=== PATIENT | female | born 1960 | race Caucasian/White ===

== ENCOUNTER 2021-01-24 08:11 | Outpatient (REF) | payer OTHER, SELFPAY ==
[2021-01-24 09:58] LABS: MANUAL DIFF FLAG NO
[2021-01-24 10:04] LABS: Basophils Absolute Auto 0.1 X10*3/uL (0.0-0.2); Basophils Percent Auto 0.9 % (0-2); Eosinophils Absolute Auto 0.3 X10*3/uL (0.0-0.4); Eosinophils Percent Auto 3.5 % (0-4); Hematocrit 42.7 % (37-47); Hemoglobin 13.4 g/dl (12.0-16.0); Imm Gran Abs Auto 0.04 X10*3/uL (0.00-0.03); Imm Gran Pct Auto 0.5 % (0.0-0.4); Lymphocytes Absolute Auto 3.1 X10*3/uL (1.2-4.9); Lymphocytes Percent Auto 38.2 % (20-40); Mean Corpuscular HGB Conc 31.4 g/dl (31.0-35.0); Mean Corpuscular Hemoglobin 27.3 pg (27.0-33.0); Mean Platelet Volume 10.1 fL (9.4-12.3); Monocytes Absolute Auto 0.6 X10*3/uL (0.1-1.2); Monocytes Percent Auto 7.9 % (2-11); Platelet Count 308 X10*3/uL (160-400); Red Blood Count 4.91 X10*6/uL (4.20-5.50); Red Cell Distribution Width 13.9 % (11.0-16.0); White Blood Count 8.1 X10*3/uL (4.8-10.8)
[2021-01-24 10:22] LABS: Alanine Aminotransferase 20 U/L (0-31); Albumin Level 4.1 g/dL (3.5-5.0); Alkaline Phosphatase 94 U/L (39-117); Anion Gap 13 (12-20); Aspartate Amino Transferase 16 U/L (5-31); Bilirubin Total 1.2 mg/dL (0.0-1.0); Blood Urea Nitrogen 21 mg/dL (9-16); Calcium 9.2 mg/dL (8.4-10.2); Carbon Dioxide 24 mmol/L (22-29); Chloride 109 mmol/L (96-108); Cholesterol 198 mg/dL; Estimated Glomerular Filt Rate 50; Glucose Fasting 103 mg/dL (60-99); HDL Cholesterol 42 mg/dL; LDL Cholesterol Calculated 135 mg/dl; Potassium 4.5 mmol/L (3.3-5.1); Sodium 141 mmol/L (135-145); Total Protein 6.6 g/dL (6.5-8.0); Triglycerides 106 mg/dL
[2021-01-24 10:43] LABS: Free T4 (Free Thyroxine) 1.28 ng/dL (0.71-1.85); Thyroid Stimulating Hormone 0.77 uIU/mL (0.32-4.0); Vitamin D 25-OH Total 21.7 ng/mL (>30)
== END 2021-01-24 08:12 | disposition home or self-care (01) ==
LOC: HO.10HDL 08:11
PROVIDERS: Visit Provider Internal Medicine
DX: Z00.00 Encounter for general adult medical examination without abnormal findings (principal); E03.9 Hypothyroidism, unspecified; E55.9 Vitamin D deficiency, unspecified
CPT/HCPCS: 36415; 80053; 80061; 82306; 84439; 84443; 85025

== ENCOUNTER 2021-05-21 08:55 | Outpatient (REF) | payer OTHER, SELFPAY ==
[2021-05-21 11:19] LABS: Anion Gap 12 (12-20); Blood Urea Nitrogen 15 mg/dL (9-16); Carbon Dioxide 23 mmol/L (22-29); Chloride 112 mmol/L (96-108); Estimated Glomerular Filt Rate 54; Glucose Fasting 96 mg/dL (60-99); Potassium 4.3 mmol/L (3.3-5.1); Sodium 143 mmol/L (135-145)
[2021-05-21 11:23] LABS: Free T4 (Free Thyroxine) 1.23 ng/dL (0.71-1.85); Thyroid Stimulating Hormone 0.57 uIU/mL (0.32-4.0)
== END 2021-05-21 08:56 | disposition home or self-care (01) ==
LOC: HO.10HDL 08:55
PROVIDERS: Visit Provider Internal Medicine
DX: E55.9 Vitamin D deficiency, unspecified (principal); E03.9 Hypothyroidism, unspecified; N18.9 Chronic kidney disease, unspecified
CPT/HCPCS: 36415; 80048; 82306; 84439; 84443

== ENCOUNTER 2021-11-26 07:42 | Outpatient (REF) | payer OTHER, SELFPAY ==
[2021-11-26 10:43] LABS: Anion Gap 12 (12-20); Blood Urea Nitrogen 16 mg/dL (9-16); Calcium 9.4 mg/dL (8.4-10.2); Carbon Dioxide 25 mmol/L (22-29); Chloride 109 mmol/L (96-108); Cholesterol 179 mg/dL; Estimated Glomerular Filt Rate 57; Glucose Fasting 101 mg/dL (60-99); HDL Cholesterol 44 mg/dL; LDL Cholesterol Calculated 118 mg/dl; Potassium 4.5 mmol/L (3.3-5.1); Sodium 141 mmol/L (135-145); Triglycerides 86 mg/dL
[2021-11-26 10:58] LABS: Free T4 (Free Thyroxine) 1.08 ng/dL (0.71-1.85); Thyroid Stimulating Hormone 1.97 uIU/mL (0.32-4.0); Vitamin D 25-OH Total 25.3 ng/mL (>30)
== END 2021-11-26 07:43 | disposition home or self-care (01) ==
LOC: HO.10HDL 07:42
PROVIDERS: Visit Provider Internal Medicine
DX: E78.00 Pure hypercholesterolemia, unspecified (principal); E55.9 Vitamin D deficiency, unspecified; N18.9 Chronic kidney disease, unspecified
CPT/HCPCS: 36415; 80048; 80061; 82306; 84439; 84443

== ENCOUNTER 2022-01-24 14:28 | Outpatient (REF) | payer OTHER, SELFPAY ==
[2022-01-24 15:41] LABS: Influenza A PCR POSITIVE (Negative); Influenza B PCR NEGATIVE (Negative); Resp Syncy Virus RNA Qual PCR NEGATIVE (Negative); SARS COV2 PCR INHOUSE NEGATIVE (Negative)
== END 2022-01-24 14:29 | disposition home or self-care (01) ==
LOC: HO.LNP 14:28
PROVIDERS: Visit Provider Internal Medicine
DX: Z20.822 Contact with and (suspected) exposure to COVID-19 (principal); R05.9 Cough, unspecified; R52 Pain, unspecified
CPT/HCPCS: 0241U

== ENCOUNTER 2022-05-10 07:46 | Outpatient (REF) | payer OTHER, SELFPAY ==
[2022-05-10 10:51] LABS: Anion Gap 12 (12-20); Blood Urea Nitrogen 15 mg/dL (9-16); Calcium 8.9 mg/dL (8.4-10.2); Carbon Dioxide 25 mmol/L (22-29); Chloride 110 mmol/L (96-108); Estimated Glomerular Filt Rate 56; Glucose Random 106 mg/dL (60-115); Potassium 4.3 mmol/L (3.3-5.1); Sodium 143 mmol/L (135-145)
[2022-05-10 11:13] LABS: Free T4 (Free Thyroxine) 1.36 ng/dL (0.71-1.85); Thyroid Stimulating Hormone 1.09 uIU/mL (0.32-4.0); Vitamin D 25-OH Total 34.3 ng/mL (>30)
== END 2022-05-10 07:47 | disposition home or self-care (01) ==
LOC: HO.10HDL 07:46
PROVIDERS: Visit Provider Internal Medicine
DX: E03.9 Hypothyroidism, unspecified (principal); E55.9 Vitamin D deficiency, unspecified
CPT/HCPCS: 36415; 80048; 82306; 84439; 84443

== ENCOUNTER 2022-07-30 07:45 | Outpatient (REF) | payer OTHER, SELFPAY ==
[2022-07-30 10:34] LABS: MANUAL DIFF FLAG NO
[2022-07-30 10:44] LABS: Basophils Absolute Auto 0.1 X10*3/uL (0.0-0.2); Basophils Percent Auto 1.1 % (0-2); Eosinophils Absolute Auto 0.2 X10*3/uL (0.0-0.4); Eosinophils Percent Auto 2.5 % (0-4); Hematocrit 43.9 % (37.0-47.0); Hemoglobin 14.2 g/dl (12.0-16.0); Imm Gran Abs Auto 0.03 X10*3/uL (0.00-0.03); Imm Gran Pct Auto 0.4 % (0.0-0.4); Lymphocytes Absolute Auto 3.3 X10*3/uL (1.2-4.9); Lymphocytes Percent Auto 38.8 % (20-40); Mean Corpuscular HGB Conc 32.3 g/dl (31.0-35.0); Mean Corpuscular Hemoglobin 28.1 pg (27.0-33.0); Mean Corpuscular Volume 86.9 fL (80.0-98.0); Mean Platelet Volume 9.9 fL (9.4-12.3); Monocytes Absolute Auto 0.5 X10*3/uL (0.1-1.2); Monocytes Percent Auto 6.4 % (2-11); Neutrophils Absolute Auto 4.3 x10*3/uL (2.0-8.3); Neutrophils Percent Auto 50.8 % (45-73); Platelet Count 316 X10*3/uL (160-400); Red Blood Count 5.05 X10*6/uL (4.20-5.50); Red Cell Distribution Width 13.2 % (11.0-16.0); White Blood Count 8.4 X10*3/uL (4.8-10.8)
[2022-07-30 11:27] LABS: Alanine Aminotransferase 24 U/L (0-31); Albumin Level 4.1 g/dL (3.5-5.0); Alkaline Phosphatase 88 U/L (39-117); Anion Gap 12 (12-20); Aspartate Amino Transferase 17 U/L (5-31); Bilirubin Total 1.3 mg/dL (0.0-1.0); Blood Urea Nitrogen 14 mg/dL (9-16); Calcium 9.2 mg/dL (8.4-10.2); Carbon Dioxide 24 mmol/L (22-29); Chloride 108 mmol/L (96-108); Cholesterol 189 mg/dL; Estimated Glomerular Filt Rate > 60; Free T4 (Free Thyroxine) 1.29 ng/dL (0.71-1.85); Glucose Fasting 99 mg/dL (60-99); HDL Cholesterol 43 mg/dL; LDL Cholesterol Calculated 121 mg/dl; Potassium 4.3 mmol/L (3.3-5.1); Sodium 140 mmol/L (135-145); Thyroid Stimulating Hormone 1.58 uIU/mL (0.32-4.0); Total Protein 6.8 g/dL (6.5-8.0); Triglycerides 128 mg/dL
== END 2022-07-30 07:46 | disposition home or self-care (01) ==
LOC: HO.10HDL 07:45
PROVIDERS: Visit Provider Internal Medicine
DX: E78.00 Pure hypercholesterolemia, unspecified (principal); E03.9 Hypothyroidism, unspecified; N18.9 Chronic kidney disease, unspecified
CPT/HCPCS: 36415; 80053; 80061; 84439; 84443; 85025

== ENCOUNTER 2022-12-13 08:32 | Outpatient (REF) | payer OTHER, SELFPAY ==
[2022-12-13 11:00] LABS: Anion Gap 13 (12-20); Blood Urea Nitrogen 18 mg/dL (9-16); Calcium 8.9 mg/dL (8.4-10.2); Carbon Dioxide 25 mmol/L (22-29); Chloride 108 mmol/L (96-108); Estimated Glomerular Filt Rate 60; Glucose Random 96 mg/dL (60-115); Potassium 4.6 mmol/L (3.3-5.1); Sodium 141 mmol/L (135-145)
[2022-12-13 11:17] LABS: Free T4 (Free Thyroxine) 1.54 ng/dL (0.71-1.85); Thyroid Stimulating Hormone 0.65 uIU/mL (0.32-4.0); Vitamin D 25-OH Total 39.8 ng/mL (>30)
== END 2022-12-13 08:33 | disposition home or self-care (01) ==
LOC: HO.10HDL 08:32
PROVIDERS: Visit Provider Internal Medicine
DX: E03.9 Hypothyroidism, unspecified (principal); E55.9 Vitamin D deficiency, unspecified; N18.9 Chronic kidney disease, unspecified
CPT/HCPCS: 36415; 80048; 82306; 84439; 84443

== ENCOUNTER 2023-06-13 07:37 | Outpatient (REF) | payer OTHER, SELFPAY ==
[2023-06-13 11:11] LABS: MANUAL DIFF FLAG NO
[2023-06-13 11:32] LABS: Basophils Absolute Auto 0.1 X10*3/uL (0.0-0.2); Basophils Percent Auto 1.1 % (0-2); Eosinophils Absolute Auto 0.2 X10*3/uL (0.0-0.4); Eosinophils Percent Auto 3.4 % (0-4); Hematocrit 44.2 % (37.0-47.0); Hemoglobin 14.3 g/dl (12.0-16.0); Imm Gran Abs Auto 0.02 X10*3/uL (0.00-0.03); Imm Gran Pct Auto 0.3 % (0.0-0.4); Lymphocytes Absolute Auto 1.9 X10*3/uL (1.2-4.9); Lymphocytes Percent Auto 31.1 % (20-40); Mean Corpuscular HGB Conc 32.4 g/dl (31.0-35.0); Mean Corpuscular Hemoglobin 29.8 pg (27.0-33.0); Mean Corpuscular Volume 92.1 fL (80.0-98.0); Monocytes Absolute Auto 0.5 X10*3/uL (0.1-1.2); Monocytes Percent Auto 8.3 % (2-11); Neutrophils Absolute Auto 3.5 x10*3/uL (2.0-8.3); Neutrophils Percent Auto 55.8 % (45-73); Platelet Count 275 X10*3/uL (160-400); Red Cell Distribution Width 12.6 % (11.0-16.0); White Blood Count 6.2 X10*3/uL (4.8-10.8)
[2023-06-13 11:46] LABS: Alanine Aminotransferase 19 U/L (0-31); Alkaline Phosphatase 86 U/L (39-117); Anion Gap 12 (12-20); Aspartate Amino Transferase 19 U/L (5-31); Bilirubin Total 1.3 mg/dL (0.0-1.0); Blood Urea Nitrogen 13 mg/dL (9-16); Calcium 9.6 mg/dL (8.4-10.2); Carbon Dioxide 28 mmol/L (22-29); Chloride 106 mmol/L (96-108); Cholesterol 192 mg/dL (<200); Estimated Glomerular Filt Rate 55; Glucose Fasting 97 mg/dL (60-99); HDL Cholesterol 43 mg/dL (>40); LDL Cholesterol Calculated 126 mg/dL (<100); Potassium 4.3 mmol/L (3.3-5.1); Sodium 142 mmol/L (135-145); Total Protein 6.8 g/dL (6.5-8.0); Triglycerides 118 mg/dL (<150)
[2023-06-13 12:02] LABS: Free T4 (Free Thyroxine) 1.08 ng/dL (0.71-1.85); Thyroid Stimulating Hormone 0.17 uIU/mL (0.32-4.0); Vitamin D 25-OH Total 71.7 ng/mL (>30)
== END 2023-06-13 07:38 | disposition home or self-care (01) ==
LOC: HO.10HDL 07:37
PROVIDERS: Visit Provider Internal Medicine
DX: E03.9 Hypothyroidism, unspecified (principal); N18.9 Chronic kidney disease, unspecified; E78.00 Pure hypercholesterolemia, unspecified; M85.80 Other specified disorders of bone density and structure, unspecified site
CPT/HCPCS: 36415; 80053; 80061; 82306; 84439; 84443; 85025

== ENCOUNTER 2023-10-03 07:50 | Outpatient (REF) | payer OTHER, SELFPAY ==
[2023-10-03 11:06] LABS: Anion Gap 11 (12-20); Blood Urea Nitrogen 14 mg/dL (9-16); Calcium 9.5 mg/dL (8.4-10.2); Carbon Dioxide 26 mmol/L (22-29); Chloride 109 mmol/L (96-108); Estimated Glomerular Filt Rate > 60; Glucose Random 101 mg/dL (60-115); Potassium 4.2 mmol/L (3.3-5.1); Sodium 142 mmol/L (135-145)
[2023-10-03 11:24] LABS: Free T4 (Free Thyroxine) 1.19 ng/dL (0.71-1.85); Thyroid Stimulating Hormone 1.25 uIU/mL (0.32-4.0)
== END 2023-10-03 07:51 | disposition home or self-care (01) ==
LOC: HO.10HDL 07:50
PROVIDERS: Visit Provider Internal Medicine
DX: E03.9 Hypothyroidism, unspecified (principal); N18.9 Chronic kidney disease, unspecified
CPT/HCPCS: 36415; 80048; 84439; 84443

== ENCOUNTER 2024-06-18 16:32 | Outpatient (REF) | payer OTHER, SELFPAY ==
[2024-06-18 16:41] LABS: MANUAL DIFF FLAG NO
[2024-06-18 17:46] LABS: Basophils Absolute Auto 0.1 X10*3/uL (0.0-0.2); Basophils Percent Auto 1.2 % (0-2); Eosinophils Absolute Auto 0.2 X10*3/uL (0.0-0.4); Eosinophils Percent Auto 2.7 % (0-4); Hematocrit 42.1 % (37.0-47.0); Hemoglobin 14.1 g/dl (12.0-16.0); Imm Gran Abs Auto 0.03 X10*3/uL (0.00-0.03); Imm Gran Pct Auto 0.3 % (0.0-0.4); Lymphocytes Absolute Auto 3.5 X10*3/uL (1.2-4.9); Lymphocytes Percent Auto 39.4 % (20-40); Mean Corpuscular HGB Conc 33.5 g/dl (31.0-35.0); Mean Corpuscular Hemoglobin 30.5 pg (27.0-33.0); Mean Corpuscular Volume 90.9 fL (80.0-98.0); Mean Platelet Volume 9.7 fL (9.4-12.3); Monocytes Absolute Auto 0.6 X10*3/uL (0.1-1.2); Monocytes Percent Auto 6.4 % (2-11); Neutrophils Absolute Auto 4.4 x10*3/uL (2.0-8.3); Platelet Count 291 X10*3/uL (160-400); Red Blood Count 4.63 X10*6/uL (4.20-5.50); Red Cell Distribution Width 12.8 % (11.0-16.0); White Blood Count 8.8 X10*3/uL (4.8-10.8)
[2024-06-18 18:07] LABS: Anion Gap 13 (12-20); Blood Urea Nitrogen 16 mg/dL (9-16); Calcium 9.7 mg/dL (8.4-10.2); Carbon Dioxide 26 mmol/L (22-29); Chloride 107 mmol/L (96-108); Cholesterol 188 mg/dL (<200); Estimated Glomerular Filt Rate 51; Glucose Random 108 mg/dL (60-115); Potassium 3.8 mmol/L (3.3-5.1); Sodium 142 mmol/L (135-145)
[2024-06-18 18:22] LABS: Free T4 (Free Thyroxine) 1.31 ng/dL (0.71-1.85); Thyroid Stimulating Hormone 0.29 uIU/mL (0.32-4.0)
== END 2024-06-18 16:33 | disposition home or self-care (01) ==
LOC: HO.LAB 16:32
PROVIDERS: PCP Internal Medicine; Visit Provider Internal Medicine
DX: E03.9 Hypothyroidism, unspecified (principal)
CPT/HCPCS: 36415; 80048; 82465; 84439; 84443; 85025

== ENCOUNTER 2024-12-29 15:51 | Emergency (ER) | payer OTHER, SELFPAY ==
[2024-12-29 16:02] VITALS: BP 127/63; PULSE 70; RESP 12; TEMP 36.4; O2SAT 97; BMI 32.6
--- NOTE | 2024-12-29 16:03 | ECG_ITS ---
Test Reason : dizzness Blood Pressure : */* mmHG Vent. Rate : 70 BPM Atrial Rate : 70 BPM P-R Int : 162 ms QRS Dur : 88 ms QT Int : 424 ms P-R-T Axes : 27 7 20 degrees QTcB Int : 457 ms Normal sinus rhythm Minimal voltage criteria for LVH, may be normal variant ( R in aVL ) Borderline ECG No previous ECGs available Referred By: Generic ED Physician Electronically Signed By: David Zavaleta
[2024-12-29 16:53] LABS: MANUAL DIFF FLAG NO
[2024-12-29 16:59] LABS: Basophils Absolute Auto 0.1 X10*3/uL (0.0-0.2); Basophils Percent Auto 0.7 % (0-2); Eosinophils Absolute Auto 0.1 X10*3/uL (0.0-0.4); Eosinophils Percent Auto 1.1 % (0-4); Hematocrit 40.8 % (37.0-47.0); Hemoglobin 13.9 g/dl (12.0-16.0); Imm Gran Abs Auto 0.11 X10*3/uL (0.00-0.03); Lymphocytes Absolute Auto 1.7 X10*3/uL (1.2-4.9); Lymphocytes Percent Auto 14.9 % (20-40); Mean Corpuscular HGB Conc 34.1 g/dl (31.0-35.0); Mean Corpuscular Hemoglobin 30.2 pg (27.0-33.0); Mean Corpuscular Volume 88.5 fL (80.0-98.0); Mean Platelet Volume 9.3 fL (9.4-12.3); Monocytes Absolute Auto 0.7 X10*3/uL (0.1-1.2); Monocytes Percent Auto 6.3 % (2-11); Neutrophils Absolute Auto 8.4 x10*3/uL (2.0-8.3); Platelet Count 239 X10*3/uL (160-400); Red Blood Count 4.61 X10*6/uL (4.20-5.50); Red Cell Distribution Width 12.7 % (11.0-16.0); White Blood Count 11.1 X10*3/uL (4.8-10.8)
[2024-12-29 17:15] LABS: Alanine Aminotransferase 15 U/L (0-31); Albumin Level 3.9 g/dL (3.5-5.0); Alkaline Phosphatase 103 U/L (39-117); Anion Gap 8 (12-20); Aspartate Amino Transferase 20 U/L (5-31); Bilirubin Total 0.7 mg/dL (0.0-1.0); Blood Urea Nitrogen 22 mg/dL (9-16); Calcium 9.1 mg/dL (8.4-10.2); Carbon Dioxide 27 mmol/L (22-29); Chloride 109 mmol/L (96-108); Creatinine Clr Calc Pharmacy 73.3; Estimated Glomerular Filt Rate > 60; Glucose Random 150 mg/dL (60-115); Potassium 4.2 mmol/L (3.3-5.1); Sodium 140 mmol/L (135-145); Total Protein 6.6 g/dL (6.5-8.0)
[2024-12-29 17:28] LABS: Troponin-I High Sensitivity < 2.7 ng/L (<3.5-17.0)
[2024-12-29 17:40] LABS: Influenza A PCR NEGATIVE (Negative); Influenza B PCR NEGATIVE (Negative); Resp Syncy Virus RNA Qual PCR NEGATIVE (Negative); SARS COV2 PCR INHOUSE NEGATIVE (Negative)
--- OUTSIDE RECORDS SUMMARY | 2024-12-29 17:49 | XMS_ITS | Continuity of Care Document ---
Author Organization [facility] [address] [place] [address] Phone [phone] Care Team Providers Care Curtain Framer Name Role Phone Tr Escobar M.D. Care Team Information Receiv er [phone] Problems Active Problems Provider Date Stephanie thyroiditis Kewsi Wong M.D. On set: 05/20/2023 Secondary hypothyroidism Kwesi Wong M.D. Onset: 05/20/2023 Carcinoma of breast Kwesi Wong M.D. Onse t: 05/20/2023 Social History Type Date Description Comments Sex Unknown Lives With Significant Other ETOH Use Occasionally consumes alcoho l ONCE A MONTH Tobacco Use Start: Unknown Patient has never smoked Allergies and adverse reactions Description No Known Drug Allergies Medications Active Medications SIG Qnty Indications Ordering Provider Date Levothyroxine [id number] Tablets Take 1 Tablet By Mouth Every Day 90tabs Kwesi Wong M.D. 05/25/2023 [id number] Tablets Take 1 Tablet By Mouth Daily Kami Guerrero MD Vital Signs Date Vital Result Comment 07/07/2024 9:41am BP Systolic 122 mmHg BP Diastolic 80 mmHg Heart Rate 72 /min Height 67 inches 5'7 Weight 192.00 lb BMI (Body Mass Index) 30.1 kg/m2 Results Test Acquired Date Facility Test Result H/L Range N ote TSH+Free T4 07/07/2024 [facility] TSH 0.449 uIU/mL Low 0.450-4.50 0 T4,Free(Dire ct) 1.80 ng/dL High 0.82-1.77 TSH With Reflex To FT4 09/17/2023 [facility] TSH With Reflex To FT4 1.98 uIU/mL (0.4-4.2) TSH With Reflex To FT4 05/27/2023 [facility] TSH With Reflex To FT4 <pending> TSH With Reflex To FT4 05/20/2023 [facility] TSH With Reflex To FT4 0.08 uIU/mL Low (0.4-4.2) Free T4 05/20/2023 [facility] Free T4 1.89 ng/dL High (0.70-1.80 ) Procedures Date Code Description Status 06/28/2024 NSHOWOFF No Show Office Visit Complet ed 03/27/2022 [id number] Collection Of Capillary Bloo d Specimen Completed Medical Devices Description No Information Available Encounters Type Date Location Provider Dx Diagnosis Office Visit 07/07/2024 9:15a Main Office Kwesi Wong M.D. E03.9 Hypothyroidism, unspecified Assessments Date Code Description Provider 07/07/2024 E03.9 Hypothyroidism, unspecified Kwesi Wong M.D. Plan of Treatment Future Appointment(s):* 07/07/2025 8:15 am - Kwesi Wong M.D. at Main Office 05/20/2023 - Kwesi Wong M.D.* E03.9 Hypothyroidism, unspecified Functional Status Description No Information Available Mental Status Description No Information Available Referrals Description No Information Available
[2024-12-29 18:00] VITALS: BP 138/76; PULSE 68; RESP 16; TEMP 36.7; O2SAT 94
--- NOTE | 2024-12-29 19:19 | ED_ITS ---
HPI - Dizziness General Chief Complaint: Dizziness Stated Complaint: dizzy,vomiting Time Seen by Provider: 12/29/24 19:19 Source: patient Mode of arrival: ambulatory Limitations: no limitations History of Present Illness ED Provider: Hugo Tran DO HPI Narrative: 64-year-old female with past medical history of hypothyroidism presents to the ED due to sudden-onset dizziness with diaphoresis and an episode of nausea and vomiting x2. Patient states she was sitting at her desk at approximately 14:00, talking to her co-worker at the time the symptoms started. She states his symptoms significantly worsened with trying to stand and ambulate and she reports it feeling ?like I was drunk?. She states when she sat down to rest and placed her hand forehead the symptoms rapidly improved and resolved within minutes. Since that time she has had ever so slight recurrent dizziness with ambulation such as to the bathroom in the emergency department. She otherwise denies other symptoms including headaches, syncope, new neck pain, numbness or weakness of the arms or legs, changes in vision, changes in hearing (chronic left-sided hearing impairment), chest discomfort, exertional symptoms, dyspnea or abdominal pain. Related Data Previous Rx's ?Medication ?Instructions ?Recorded meclizine 25 mg tablet 25 mg PO TID PRN dizziness #14 tabs 12/29/24 Allergies Allergy/AdvReac Type Severity Reaction Status Date / Time No Known Allergies Allergy Verified 12/29/24 16:06 Review of Systems 2 Review of Systems: Yes all other systems are reviewed and are negative [facility] Social History Social History (System 12/26/20 @ 14:29 by Esthela Live) Advance Directives: No Advance Directives Information Provided: No Do you have a plan to hurt others: No Plan Physical Exam 2 Vital Signs: Vital Signs: Last Vital Signs Temp 98.1 F 12/29/24 20:00 Pulse 71 12/29/24 20:00 Resp 15 12/29/24 20:00 BP 144/76 H 12/29/24 20:00 Pulse Ox 94 12/29/24 20:00 O2 Del Method Room Air 12/29/24 20:00 BMI result Body Mass Index 32.6 Constitutional: ?Alert, oriented, speaking in full sentences HEENT: ?Normocephalic, atraumatic. ?Moist mucous membranes Eyes: ?PERRL, EOMI Neck: ?Supple, nontender Chest: ?No chest wall tenderness Respiratory: ?Lungs clear to auscultation, no increased work of breathing Cardio: ?Regular rate and rhythm, no murmur, 2+ radial and DP pulses symmetrically GI: ?Soft, nondistended, nontender Back: ?Normal range of motion, nontender Skin: ?No rash, no lesions Neuro: ?Mental Status: Patient is alert, attentive, and fully oriented Speech: Clear and fluent CN II: Visual castaneda are full, pupils are equal and briskly reactive to light CN III, IV, : Extra ocular motions are intact in all directions. No ptosis. CN V: Facial sensation intact, both upper and lower face CN VII: Symmetric facial movements CN VIII: Hearing is grossly normal CN IX, X: Symmetric elevation of palate, normal phonation CN XI: Shoulder shrug 5/5 strength bilaterally CN XII: Tongue protrudes midline Motor: No pronator drift bilaterally. 5/5 strength all 4 extremities. Normal muscle bulk and tone. Sensory: Sensation intact all 4 extremities to light touch without reported paresthesias. Coordination: No dysmetria on finger to nose bilaterally. No truncal ataxia noted. Unremarkable gait Extremities: ?No swelling or tenderness, full range of motion Psych: ?Calm, alert and cooperative, appropriate behavior Medical Decision Making Medical Decision Making MDM Narrative: This is a patient with unremarkable vital signs and resolve symptoms presenting with transient dizziness that was clearly triggered and worsened with movement and standing/walking. The patient's neurologic exam is completely unremarkable. At this time I do not suspect central cause of the dizziness. He has had no recent illnesses and no new hearing impairments or tinnitus and therefore I do not suspect viral labyrinthitis or Meniere's disease. This could be BPPV, but I was unable to elicit nystagmus or reproduce the symptoms with Marcie-Hallpike maneuver. The patient has a steady gait without symptoms. In the absence of headache, neck pain or syncope, I do not suspect dissection. She is asymptomatic at this time with unremarkable lab work including thyroid testing, troponin, electrolytes and CBC. No suspicion for intracranial hemorrhage. With shared decision-making, the patient agrees with plan for discharge to home with prescription for meclizine but we will return with any worsening symptoms. She voices understanding of return precautions. Lab Data 12/29/24 16:49 12/29/24 16:49 Labs: Lab Results 12/29/24 Range/Units 16:49 WBC 11.1 H (4.8-10.8) X10*3/uL RBC 4.61 (4.20-5.50) X10*6/uL Hgb 13.9 (12.0-16.0) g/dl Hct 40.8 (37.0-47.0) % MCV 88.5 (80.0-98.0) fL MCH 30.2 (27.0-33.0) pg MCHC 34.1 (31.0-35.0) g/dl RDW 12.7 (11.0-16.0) % Plt Count 239 (160-400) X10*3/uL MPV 9.3 L (9.4-12.3) fL Immature Gran % (Auto) 1.0 H (0.0-0.4) % Neut % (Auto) 76.0 H (45-73) % Lymph % (Auto) 14.9 L (20-40) % Carver % (Auto) 6.3 (2-11) % Eos % (Auto) 1.1 (0-4) % Baso % (Auto) 0.7 (0-2) % Lymph # (Auto) 1.7 (1.2-4.9) X10*3/uL Carver # (Auto) 0.7 (0.1-1.2) X10*3/uL Eos # (Auto) 0.1 (0.0-0.4) X10*3/uL Baso # (Auto) 0.1 (0.0-0.2) X10*3/uL Abs Immat Gran (auto) 0.11 H (0.00-0.03) X10*3/uL Absolute Neuts (auto) 8.4 H (2.0-8.3) x10*3/uL Absolute Nucleated RBC 0.000 (0.0-0.012) X10*3/uL Nucleated RBC % (auto) 0.0 (0.0-0.2) /100WBC Sodium 140 (135-145) mmol/L Potassium 4.2 (3.3-5.1) mmol/L Chloride 109 H (96-108) mmol/L Carbon Dioxide 27 (22-29) mmol/L Anion Gap 8 L (12-20) BUN 22 H (9-16) mg/dL Creatinine 0.89 (0.5-1.4) mg/dL Estim Creat Clear Calc 73.3 Estimated GFR > 60 Random Glucose 150 H (60-115) mg/dL Calcium 9.1 D (8.4-10.2) mg/dL Total Bilirubin 0.7 (0.0-1.0) mg/dL AST 20 (5-31) U/L ALT 15 (0-31) U/L Alkaline Phosphatase 103 (39-117) U/L Troponin I High Sens < 2.7 (<3.5-17.0) ng/L Total Protein 6.6 (6.5-8.0) g/dL Albumin 3.9 (3.5-5.0) g/dL Lipase 33 (8-78) U/L TSH 0.58 (0.32-4.0) uIU/mL Influenza Type A (PCR) NEGATIVE (Negative) Influenza Type B (PCR) NEGATIVE (Negative) RSV RNA Qual (PCR) NEGATIVE (Negative) SARS-CoV-2 RNA (RT-PCR) NEGATIVE (Negative) Independent Interpretation I performed an independent interpretation of an: EKG Interpretation: Normal sinus rhythm at 70 beats per minute, normal axis, unremarkable intervals, voltage criteria met for LVH, no diagnostic ST or T-wave, no prior for comparison. Discharge Plan Discharge Clinical Impression: Dizziness Patient Disposition: Home, Self-Care Instructions: Vertigo (ED), Dizziness (ED) Additional Instructions: You were evaluated for a dizziness episode with nausea and vomiting and sweating. Lab work and exam findings showed no acute abnormalities. We prescribed meclizine which can take up to every 8 hours at home as needed for recurrent dizziness. Very importantly, if your dizziness is constant, not completely resolve with rest, or if you develop episodes of passing out, headaches, fevers, worsening neck pain, numbness or weakness of your arms or legs, change in hearing from baseline, change in speech, change in vision or any other acute changes or concerns, please return to the emergency department immediately. Otherwise, follow up with your primary care provider. Prescriptions: New meclizine 25 mg tablet 25 mg PO TID PRN (Reason: dizziness) Qty: 14 0RF Stand Alone Forms: Work/School Release Print Language: Stateless
[2024-12-29 19:42] LABS: Lipase 33 U/L (8-78)
[2024-12-29 19:59] LABS: Thyroid Stimulating Hormone 0.58 uIU/mL (0.32-4.0)
[2024-12-29 20:00] VITALS: BP 144/76; PULSE 71; RESP 15; TEMP 36.7; O2SAT 94
[2024-12-29 20:51] VITALS: BP 118/77; PULSE 72; RESP 18; TEMP 36.7; O2SAT 95
[2024-12-29 21:19] VITALS: BP 118/77; PULSE 72; RESP 18; TEMP 36.7; O2SAT 95
== END 2024-12-29 21:20 | disposition home or self-care (01) ==
PROVIDERS: Emergency Provider Emergency Medicine
DX: R42 Dizziness and giddiness (principal); E03.9 Hypothyroidism, unspecified; R11.2 Nausea with vomiting, unspecified; R94.31 Abnormal electrocardiogram [ECG] [EKG]; Z79.899 Other long term (current) drug therapy; Z03.818 Encounter for observation for suspected exposure to other biological agents ruled out
CPT/HCPCS: 0241U; 36415; 80053; 83690; 84443; 84484; 85025; 93005; 99283; 99285

== ENCOUNTER → 2024-12-29 16:03 | Outpatient (BNV) | payer OTHER, SELFPAY | PROVIDERS: Emergency Provider Emergency Medicine; Visit Provider Internal Medicine Cardiovascular Disease | DX: R42 Dizziness and giddiness (principal) | CPT/HCPCS: 93010 ==

== ENCOUNTER 2025-03-22 13:10 | Outpatient (REF) | payer OTHER, SELFPAY ==
[2025-03-22 13:12] LABS: MANUAL DIFF FLAG NO
[2025-03-22 13:29] LABS: Hematocrit 45.4 % (37.0-47.0); Hemoglobin 14.9 g/dl (12.0-16.0); Imm Gran Abs Auto 0.03 X10*3/uL (0.00-0.03); Imm Gran Pct Auto 0.3 % (0.0-0.4); Lymphocytes Absolute Auto 3.6 X10*3/uL (1.2-4.9); Mean Corpuscular HGB Conc 32.8 g/dl (31.0-35.0); Mean Corpuscular Hemoglobin 29.6 pg (27.0-33.0); Mean Corpuscular Volume 90.3 fL (80.0-98.0); NRBC Abs Auto 0.000 X10*3/uL (0.0-0.012); NRBC Pct Auto 0.0 /100WBC (0.0-0.2); Platelet Count 289 X10*3/uL (160-400); Red Blood Count 5.03 X10*6/uL (4.20-5.50); White Blood Count 8.6 X10*3/uL (4.8-10.8)
--- OUTSIDE RECORDS SUMMARY | 2025-03-22 14:15 | XMS_ITS | Patient Health Record ---
Author Organization Roger Guveara MD Address [address] [place], [place] [phone] Care Team Providers Care Poultry Grader Name Role Phone Roger Guevara Primary Care [...] 03/21/2025 12:17:59 PM >referral info and EKG faxed Referral Priority Routine Medications Medication SIG (Take, Route, Frequency, Duration) Notes Start Date End Date Status Vitamin D 25 MCG (1000 UT) 1 tablet Oral ly every other day Active Anastrozole 1 MG 1 tablet Orally Once a day Active Levothyroxine Sodium 112 MCG 1 tablet in the morning on an empty stomach Orally Once a day Active Social History Tobacco Use: Social History Observation Description Date Details (start date - stop date) Never Smoker NA - NA AUDIT-C (Standard) Question Answer Notes Did you have a drink contain ing alcohol in the past year? Yes How often did you have a dri nk containing alcohol in the past year? Monthly or less (1 point) How many drinks did you have on a typical day when you were drinking in the past year? 1 or 2 drinks (0 point) How often did you have six o r more drinks on one occasion in the past year? Never (0 point) Points 1 Interpretation Negative Tobacco Control (Standard) Question Answer Notes Tobacco use: Nonsmoker Problems Problem Type SNOMED Code ICD Code Onset Dates Problem Status W/U Status Risk Notes Problem History of breas t cancer (Z85.3) Active confirmed Problem Cardiovascular disease (06987071) Cardiovascular disease (I25.10) Active confirmed Vital Signs Blood pressure diastolic 70 mm Hg 03/21/2025 Height 67 in 03/21/2025 Blood pressure systolic 122 mm Hg 03/21/2025 Weight 200 lbs 03/21/2025 BMI 31.32 kg/m2 03/21/2025 Encounters Encounter Location Date Provider Diagnosis Roger Guevara MD [address] [place] [phone] 03/22/2025 Roger Guevara Cardiovascular disea se I25.10 Roger Guevara MD [address] [id number] 01/07/2025 Roger Guevara History of breast cancer Z85.3 and Vasovagal attack R55 Roger Guevara MD [address] [place] [id number] 03/21/2025 Roger Guevara Vasovagal attack R55 and Cardiovascular disease I25.10 Roger Guevara MD [address] [place] [id number] 12/31/2024 Roger Guevara Assessments Encounter Date Diagnosis (ICD Code) Assessment Notes Treatment Notes Treatment Clinical Notes Section Notes 03/22/2025 Cardiovascular disease (ICD-10 - I25.10) 01/07/2025 History of breast cancer (ICD-10 - Z85.3) followed by dr head 01/07/2025 Vasovagal attack (ICD-10 - R55) have explained the cause of her symptoms and she is aware Total time spent on the date of the encounter is 35 minutes including both face to face time spent and time spent reviewing documentation, pertinent lab data, studies and counseling the patient. 03/21/2025 Vasovagal attack (ICD-10 - R55) sounds like the same thing she had in december. sounds like a vasovagal the ecg is a little different from the er ecg but i don't think it is significant 03/21/2025 Cardiovascular disease (ICD-10 - I25.10) 03/21/2025 Other referral to cardiology/ had hiked 12 miles with no similar problems Plan Of Treatment Pending Test Test Name Order Date Complete Blood Count Auto Diff 5 Comprehensive [place]. Panel Fast 5 Next Appt Details Provider Name:Roger Mustafa Flynn torres, 03/28/2025 11:45:00 AM, [address] [place] [address], [address], [place], [place], [phone], Provider Name:Roger Moon Flynn torres, 07/08/2025 08:00:00 AM, [address] [place] [address], [address], [place], [place], [phone], Provider Name:Roger Pruett melissa, 07/15/2025 09:30:00 AM, [address] [place] [address], [address], [place], [place], [phone], Insurance Providers Payer Name Payer Address Payer Phone Subscriber Number Group Number Insured Name Patient Relationship to Insured Coverage Start Date Coverage End Date [address] [facility] [place] GAUTHIER [id number] MADONNA DOOLEY Self - patient is the insured
--- OUTSIDE RECORDS SUMMARY | 2025-03-22 14:15 | XMS_ITS | Patient Health Record ---
Author Organization [facility] Address [address] [place] [address] Care Team Providers Care Music Producer Name Role Phone Tr Escobar MD Primary Care Provider Oren Reilly Unavailable [phone] Reason For Referral No Information Medications Medication SIG (Take, Route, Frequency, Duration) Notes Start Date End Date Status Levothyroxine Sodium 100 MCG Oral for 90 Active Immunizations Vaccine Route Administration Date Status Comme nts Flu vaccine no Preserv 3 and > Unknown 04/09/2016 Admin istered Problems Problem Type SNOMED Code ICD Code Onset Dates Problem Status W/U Status Risk Notes Problem [id number] Encounter for screening for malignant neoplasm of colon (Z12.11) Active confirmed Problem Screening for malignant neoplasm of rectum (813985656) Encounter for screening for malignant neoplasm of rectum (Z12.12) Active confirmed Problem 58957448 Preprocedural examination (Z01.818) Active confirmed Plan Of Treatment Future Test Test Name Order Date COLONOSCOPY 04/09/2016 Insurance Providers Payer Name Payer Address Payer Phone Subscriber Number Group Number Insured Name Patient Relationship to Insured Coverage Start Date Coverage End Date [facility] [address] [place] [address] [phone] [id number] MADONNA ALVARADO Self - patient is the insured Medical (General) History Medical History History ICD Code Denies [place],DM,CVA,Lung disease,renal dise ase Surgical History Surgery Date(Month/Year) 1 1986
--- OUTSIDE RECORDS SUMMARY | 2025-03-22 14:15 | XMS_ITS | Patient Health Record ---
Author Organization [facility] Address [address] [place] [address] Care Team Providers Care Twenty One Dealer Name Role Phone Tr Escobar MD Primary Care Provider Saniya Washington Unavailable [phone] Allergies No Known Allergies Reason For Referral No Information Medications Medication SIG (Take, Route, Frequency, Duration) Notes Start Date End Date Status Levothyroxine Sodium Active Afluria Preservative Free Unknown Social History Tobacco use other than smoking: Question Answer Notes Are you an other tobacco user? No Problems Problem Type SNOMED Code ICD Code Onset Dates Problem Status W/U Status Risk Notes Problem Plantar wart (24407844) Plantar wart (B07.0) Active confirmed Problem Hallux valgus (acquired), right foot (M20.11) Active confirmed Problem Gouty arthritis of right foot (8865086901058 107) Gouty arthritis of right foot (M10.9) Active confirmed Plan Of Treatment Pending Test Test Name Order Date [id number] Destruction, 1-14 11/14/2014 Insurance Providers Payer Name Payer Address Payer Phone Subscriber Number Group Number Insured Name Patient Relationship to Insured Coverage Start Date Coverage End Date [facility] [address] [place] [address] [id number] Jane Monte Self - patient is the insured Medical (General) History Medical History History ICD Code Thyroid disorder Chicken pox Measles Surgical History Surgery Date(Month/Year)
[2025-03-22 14:25] LABS: Alanine Aminotransferase 20 U/L (0-31); Albumin Level 4.3 g/dL (3.5-5.0); Alkaline Phosphatase 98 U/L (39-117); Anion Gap 15 (12-20); Aspartate Amino Transferase 22 U/L (5-31); Blood Urea Nitrogen 18 mg/dL (9-16); Calcium 9.4 mg/dL (8.4-10.2); Carbon Dioxide 22 mmol/L (22-29); Chloride 109 mmol/L (96-108); Estimated Glomerular Filt Rate 53; Potassium 4.2 mmol/L (3.3-5.1); Sodium 142 mmol/L (135-145); Total Protein 7.0 g/dL (6.5-8.0)
== END 2025-03-22 13:11 | disposition home or self-care (01) ==
LOC: HO.LNP 13:10
PROVIDERS: Visit Provider Internal Medicine
DX: I25.10 Atherosclerotic heart disease of native coronary artery without angina pectoris (principal)
CPT/HCPCS: 80053; 85025

== ENCOUNTER 2025-03-28 15:47 | Outpatient (REF) | payer OTHER, SELFPAY ==
--- OUTSIDE RECORDS SUMMARY | 2025-03-28 15:52 | XMS_ITS | Patient Health Record ---
Author Organization Roger Guevara MD Address [address] [place], [place] [id number] Care Team Providers Care Ironworker Helper Shop Name Role Phone Roger Guevara Primary Care Provider Allergies No Known Allergies Results Component Value Reference Range Notes Electrocardiogram (EKG) Reviewed date:03/21/2025 01:04:36 PM Interpretation: Performing Lab: Notes/Report: Complete Blood Count Auto Di ff Reviewed date:03/24/2025 08:32:08 PM Interpretation: Performing Lab:[facility], [address] [place] [id number] Notes/Report: White Blood Count 8.6 4.8-10.8 X10*3/uL Red Blood Count 5.03 4.20-5.50 X10*6/uL Hemoglobin 14.9 12.0-16.0 g/dl Hematocrit 45.4 37.0-47.0 % Mean Corpuscular Volume 90.3 80.0-98.0 fL Mean Corpuscular Hemoglobin 29.6 27.0-33.0 pg Mean Corpuscular HGB Conc 32.8 31.0-35.0 g/dl Red Cell Distribution Width 12.9 11.0-16.0 % Platelet Count 289 160-400 X10*3/uL Mean Platelet Volume 9.7 9.4-12.3 fL Neutrophils Percent Auto 46.3 45-73 % Imm Gran Pct Auto 0.3 0.0-0.4 % Lymphocytes Percent Auto 41.6 20-40 % Monocytes Percent Auto 7.9 2-11 % Eosinophils Percent Auto 2.9 0-4 % Basophils Percent Auto 1.0 0-2 % NRBC Pct Auto 0.0 0.0-0.2 /100WBC Neutrophils Absolute Auto 4.0 2.0-8.3 x10*3/u L Imm Gran Abs Auto 0.03 0.00-0.03 X10*3/uL Lymphocytes Absolute Auto 3.6 1.2-4.9 X10*3/u L Monocytes Absolute Auto 0.7 0.1-1.2 X10*3/uL Eosinophils Absolute Auto 0.3 0.0-0.4 X10*3/u L Basophils Absolute Auto 0.1 0.0-0.2 X10*3/uL NRBC Abs Auto 0.000 0.0-0.012 X10*3/uL Comprehensive [place]. Panel Fa st Reviewed date:03/24/2025 08:32:34 PM Interpretation: Performing Lab:[facility], [address] [place] [phone] Notes/Report: Sodium 142 135-145 mmol/L Potassium 4.2 3.3-5.1 mmol/L Chloride 109 96-108 mmol/L Carbon Dioxide 22 22-29 mmol/L Anion Gap 15 12-20 Blood Urea Nitrogen 18 9-16 mg/dL Creatinine 1.04 0.5-1.4 mg/dL Estimated Glomerular Filt Rate 53 Chronic Kidney Disease: Estimated GFR < 60 mL/min/1.73m2 Severe Kidney Disease: Estimated GFR < 15 mL/min/1.73m2 Glucose Fasting 100 60-99 mg/dL A fasting glucose from 100-125 mg/dl is considered impaired (pre-diabetes). Calcium 9.4 8.4-10.2 mg/dL Bilirubin Total 1.0 0.0-1.0 mg/dL Aspartate Amino Transferase 22 5-31 U/L Alanine Aminotransferase 20 0-31 U/L Total Protein 7.0 6.5-8.0 g/dL Albumin Level 4.3 3.5-5.0 g/dL Alkaline Phosphatase 98 39-117 U/L Reason For Referral Reason Vasovagel Attack Diagnosis 1 Vasovagal attack (R5 5) Referral Organization Roger Guevara MD Referring Provider First Name Roger Referring Provider Last Name Paola Referring Provider Speciality Internal M edicine Referred Provider Ricky, Gilmer Referred Provider Specialty Cardiovascul ar Disease General [...] 1 tablet Orally Once a day Active Social History [...] Status W/U Status Risk Notes Problem Hypothyroid (E03.9) Active confirmed Problem Personal history of primary malignant neoplasm of breast (980794296) History of breast cancer (Z85.3) Active confirmed Problem Cardiovascular disease (03999087) Cardiovascular disease (I25.10) Active confirmed Vital Signs Blood pressure diastolic 70 mm Hg 03/28/2025 Height 67 in 03/28/2025 Blood pressure systolic 122 mm Hg 03/28/2025 Weight 202 lbs 03/28/2025 BMI 31.63 kg/m2 03/28/2025 Encounters Encounter Location Date Provider Diagnosis Roger Guevara MD [address] [place] [id number] 03/22/2025 Roger Guevara Cardiovascular disea se I25.10 Roger Guevara MD [address] [place] [id number] 01/07/2025 Roger Guevara History of breast cancer Z85.3 and Vasovagal attack R55 Roger Guevara MD [address] [place] [id number] 03/21/2025 Roger Guevara Vasovagal attack R55 and Cardiovascular disease I25.10 Roger Guevara MD [address] [place] [address] Drive [address] [place] [id number] 03/28/2025 Roger Guevara Hypothyroid E03.9 an d Weakness generalized R53.1 Roger Guevara MD [address] [place] [address] [address] [place] [id number] 12/31/2024 Roger Guevara Assessments Encounter Date Diagnosis [...] but i don't think it is significant 03/28/2025 Hypothyroid (ICD-10 - E03.9) 03/28/2025 Weakness generalized (ICD-10 - R53.1) 03/21/2025 Cardiovascular disease (ICD-10 - I25.10) 03/21/2025 Other referral to cardiology/ had hiked 12 miles with no similar problems Plan Of Treatment Pending Test Test Name Order Date Complete Blood Count Auto Diff 5 Comprehensive [place]. Panel Fast 5 TSH reflex Free T4 03/28/2025 Next Appt Details Provider Name:Roger mcguirer, 05/26/2025 11:45:00 AM, [address] [place] [address], [address] [place] [address], [phone], Provider Name:Roger torres, 07/08/2025 08:00:00 AM, [address] [place] [address], [place] [address], [place], [place], [phone], Provider Name:Roger torres, 07/15/2025 09:30:00 AM, [address] [facility], [address], [place], [place], [phone], Insurance Providers Payer Name Payer Address Payer Phone Subscriber Number Group Number Insured Name Patient Relationship to Insured Coverage Start Date Coverage End Date [address] [facility] [place]ER [phone] [id number] MADONNA DOOLEY Self - patient is the insured
--- OUTSIDE RECORDS SUMMARY | 2025-03-28 15:53 | XMS_ITS | Patient Health Record ---
Author Organization [facility] Address [address] [place] [address] Care Team Providers Care Vehicle And Equipment Cleaner Name Role Phone Tr Escobar MD Primary Care Provider Oren Reilly Unavailable [phone] Reason For Referral No Information Medications Medication SIG (Take, Route, Frequency, Duration) Notes Start Date End Date Status Levothyroxine Sodium 100 MCG Oral for 90 Active Immunizations Vaccine Route Administration Date Status Comme nts Flu vaccine no Preserv 3 and > Unknown 04/09/2016 Admin istered Problems Problem Type SNOMED Code ICD Code Onset Dates Problem Status W/U Status Risk Notes Problem 100236387 Encounter for screening for malignant neoplasm of colon (Z12.11) Active confirmed Problem Screening for malignant neoplasm of rectum (623590477) Encounter for screening for malignant neoplasm of rectum (Z12.12) Active confirmed Problem 55440338 Preprocedural examination (Z01.818) Active confirmed Plan Of Treatment Future Test Test Name Order Date COLONOSCOPY 04/09/2016 Insurance Providers Payer Name Payer Address Payer Phone Subscriber Number Group Number Insured Name Patient Relationship to Insured Coverage Start Date Coverage End Date [facility] [address] [place] [address] [phone] [id number] MADONNA ALVARADO Self - patient is the insured Medical (General) History Medical History History ICD Code Denies [place],DM,CVA,Lung disease,renal dise ase Surgical History Surgery Date(Month/Year) 1 1986
--- OUTSIDE RECORDS SUMMARY | 2025-03-28 15:53 | XMS_ITS | Continuity of Care Document ---
Author Organization [facility] [address] [place] [address] Phone [phone] Care Team Providers Care Pony Worker Name Role Phone Tr Escobar M.D. Care Team Information Receiv er [phone] Problems Active Problems Provider Date Stephanie thyroiditis Kwesi Wong M.D. On set: 05/20/2023 Secondary hypothyroidism Kwesi Wong M.D. Onset: 05/20/2023 Carcinoma of breast Kwesi Wong M.D. Onse t: 05/20/2023 Social History Type Date Description Comments Sex Female Sex Unknown Lives With Significant Other ETOH Use Occasionally consumes alcoho l ONCE A MONTH Tobacco Use Start: Unknown Patient has never smoked Allergies and adverse reactions Description No Known Drug Allergies Medications Active Medications SIG Qnty Indications Ordering Provider Date Levothyroxine [id number] Tablets Take 1 Tablet By Mouth Every Day 90tabs Kwesi Wong M.D. 05/25/2023 [id number] Tablets Take 1 Tablet By Mouth Daily [...] 0.82-1.77 TSH With Reflex To FT4 09/17/2023 [facility] TSH With Reflex To FT4 1.98 uIU/mL (0.4-4.2) TSH With Reflex To FT4 05/27/2023 [facility] TSH With Reflex To FT4 <pending> TSH With Reflex To FT4 05/20/2023 [facility] TSH With Reflex To FT4 0.08 uIU/mL Low (0.4-4.2) Free T4 05/20/2023 [facility] Free T4 1.89 ng/dL High (0.70-1.80 ) Procedures Date Code Description Status 06/28/2024 NSHOWOFF No Show Office Visit Complet ed 03/27/2022 89804 Collection Of Capillary Bloo d Specimen Completed [...]
--- OUTSIDE RECORDS SUMMARY | 2025-03-28 15:53 | XMS_ITS | Patient Health Record ---
Author [facility] Address [address] [place] [address] Care Team Providers Care Scorer Helper Name Role Phone Tr Escobar MD Primary Care Provider Saniya Washington Unavailable [phone] Allergies No Known Allergies Reason For Referral [...] W/U Status Risk Notes Problem Plantar wart (67446031) Plantar wart (B07.0) Active confirmed Problem Hallux valgus (acquired), right foot (M20.11) Active confirmed Problem Gouty arthritis of right foot (6911202426035 107) Gouty arthritis of right foot (M10.9) Active confirmed Plan Of Treatment Pending Test Test Name Order Date [id number] Destruction, 1-14 11/14/2014 Insurance Providers Payer Name Payer Address Payer Phone Subscriber Number Group Number Insured Name Patient Relationship to Insured Coverage Start Date Coverage End Date [facility] [address] [place] [id number] Jane Monte Self - patient is the insured Medical (General) History Medical History History ICD Code Thyroid disorder Chicken pox Measles Surgical History Surgery Date(Month/Year)
== END 2025-03-28 15:48 | disposition home or self-care (01) ==
LOC: HO.LNP 15:47
PROVIDERS: Visit Provider Internal Medicine
DX: E03.9 Hypothyroidism, unspecified (principal)
CPT/HCPCS: 84443

== ENCOUNTER 2025-04-05 14:01 | Outpatient (AMB) | payer OTHER, SELFPAY ==
--- NOTE | 2025-04-05 14:04 | MHC.OFFVIS ---
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 These episodes began in December and are characterized by sudden onset of sweating, clamminess, and a sensation of being unsteady, harriett to feeling drunk. The episodes occur without warning and are not associated with any specific triggers, although one episode occurred after eating. The patient reports that during these episodes, she feels as though she might pass out, but she does not lose consciousness. Lying down seems to alleviate the symptoms, although it does not resolve them immediately. She has visited the emergency room following these episodes, where her blood pressure and blood sugar levels were found to be normal. The patient has a history of breast cancer, for which she underwent a lumpectomy two years ago. She denies any history of heart problems, such as heart attacks. She also reports hearing loss in her left ear, for which she consulted an ENT specialist who did not find it related to her current symptoms. The patient maintains an active lifestyle, including hiking significant distances without experiencing symptoms during these activities. No history of any cardiac issues including coronary disease or myocardial infarction or cardiomyopathy. Exercise The patient engages in hiking, including completing significant distances on the [employer], without experiencing symptoms during these activities. [facility] Medical History Breast cancer Family History Father No problems noted. Mother No problems noted. Social History Alcohol intake: current Alcohol intake frequency: holidays/special occasions only Patient Tobacco Use Status: Never used Tobacco Review of Systems Const Denies weakness ENT Reports dizziness Card Denies chest pain, Denies chest pain with activity, Denies syncope, Denies rapid heart rate, Denies pedal edema, Denies edema, Denies leg edema, Denies lightheadedness, Reports palpitations, Denies dyspnea, Denies dyspnea on exertion and Denies orthopnea Resp Denies cough, Denies dyspnea and Denies dyspnea on exertion GI Denies hematochezia and Denies change in stool character Musc Denies abnormal gait, Denies muscle cramps, Denies muscle weakness, Denies numbness, Denies radiating pain into limb and Denies tingling Neuro Denies abnormal gait, Reports dizziness, Denies syncope, Denies numbness, Denies tingling and Denies weakness Endo Reports palpitations Physical Exam Vital Signs: Last Vital Signs Pulse 88 04/05/25 14:05 BP 122/68 04/05/25 14:05 BMI result Body Mass Index 31.3 Const General: comfortable and no acute distress Orientation/consciousness: patient oriented x3 HEENT Other: Unremarkable Head: Yes normal to inspection Neck Neck: Yes normal visual inspection Chest Chest palpation & inspection: normal inspection of the chest Resp Auscultation: clear to auscultation bilaterally Cardio Palpation: normal PMI Heart sounds: S1 normal heart sound present, S2 normal heart sound present, no gallops, no murmurs and no rubs GI Palpation (GI): Soft to palpation Back/Spine/Pelvis Other: unremarkable Skin General skin exam: no rashes or lesions noted Neuro General: patient oriented x3 Extrem General: Yes normal to inspection Psych Mental Status: mental status grossly normal Assessment & Plan Assessment & Plan (1) Pre-syncope: Code(s): R55 - Syncope and collapse Category: Medical Plan EKG with underlying sinus rhythm at 70/Min; minimal criteria for LVH versus normal variant; normal KS and corrected QT. The plan includes conducting a comprehensive cardiac evaluation to determine the cause of the pre-syncopal episodes. A 30-day heart monitor will be provided to capture any cardiac events that may occur during these episodes. An echocardiogram will be performed to assess cardiac function, and a tilt table test will be conducted to evaluate blood pressure changes in different positions. The patient is advised to remain well-hydrated to help manage symptoms. Follow-up will be arranged to review the above test results. Discussion Notes During the consultation, I discussed with the patient the potential diagnosis of vasovagal syncope and the importance of monitoring cardiac activity to identify any underlying issues. I explained the procedures for the 30-day heart monitor, echocardiogram, and tilt table test, emphasizing their roles in diagnosing the condition. We also discussed the importance of staying hydrated and the plan for follow-up to review test results and adjust the management plan as necessary. Patient was informed and verbally consented to the use of an ambient scribe for clinic note documentation during this visit. Orders: Orders CA echo transthoracic complete Today R55 - Syncope and collapse ECG Tilt Table Test Today R55 - Syncope and collapse ECG 30 day event monitor Today R55 - Syncope and collapse Medications: Discontinued meclizine Discontinued Reason: Patient no longer taking 25 mg PO TID PRN 14 tabs 0RF dizziness Patient Instructions: - Stay well-hydrated to help manage symptoms. - Use the 30-day heart monitor as instructed and record any episodes. - Follow up to review test results and discuss further management. Coding Level of Care Code New Pt Level 4 (70300) Complex EM visit Add On G2211 Diagnoses Pre-syncope R55
[2025-04-05 14:05] VITALS: BP 122/68; PULSE 88; BMI 31.3
--- OUTSIDE RECORDS SUMMARY | 2025-04-05 15:19 | XMS_ITS | Continuity of Care Document ---
Author Organization [facility] [address] [place] [address] Phone [phone] Care Team Providers Care Special Machine Operator Name Role Phone Tr Escobar M.D. Care Team Information Receiv er [phone] Problems Active Problems Provider Date Stephanie thyroiditis [...] SIG Qnty Indications Ordering Provider Date Levothyroxine [id number] Tablets Take 1 Tablet By Mouth Every Day 90tabs Kwesi Wong M.D. 05/25/2023 Tohsbniqnot6iq Tablets Take 1 Tablet By Mouth Daily [...] 0.82-1.77 TSH With Reflex To FT4 09/17/2023 [facility] TSH With Reflex To FT4 1.98 uIU/mL (0.4-4.2) TSH With Reflex To FT4 05/27/2023 [facility] TSH With Reflex To FT4 <pending> TSH With Reflex To FT4 05/20/2023 [facility] TSH With Reflex To FT4 0.08 uIU/mL Low (0.4-4.2) Free T4 05/20/2023 [facility] Free T4 1.89 ng/dL High (0.70-1.80 ) Procedures Date Code Description Status 06/28/2024 NSHOWOFF No Show Office Visit Complet ed 03/27/2022 22437 Collection Of Capillary Bloo d Specimen Completed [...]
--- OUTSIDE RECORDS SUMMARY | 2025-04-05 15:19 | XMS_ITS | Patient Health Record ---
Author Organization [facility] Address [address] [place] [address] Care Team Providers Care White Sugar Supervisor Name Role Phone Luz (RETIRED) Tr NAVA Primary Care Provide r Unavailable Oren Goss Unavailable [phone] Reason For Referral No Information Medications Medication SIG (Take, Route, Frequency, Duration) Notes Start Date End Date Status Levothyroxine Sodium 100 MCG Oral for 90 Active Immunizations Vaccine Route Administration Date Status Comme nts Flu vaccine no Preserv 3 and > Unknown 04/09/2016 Admin istered Problems Problem Type SNOMED Code ICD Code Onset Dates Problem Status W/U Status Risk Notes Problem 651993996 Encounter for screening for malignant neoplasm of colon (Z12.11) Active confirmed Problem Screening for malignant neoplasm of rectum (298562320) Encounter for screening for malignant neoplasm of rectum (Z12.12) Active confirmed Problem 17082478 Preprocedural examination (Z01.818) Active confirmed Plan Of Treatment Future Test Test Name Order Date COLONOSCOPY 04/09/2016 Insurance Providers Payer Name Payer Address Payer Phone Subscriber Number Group Number Insured Name Patient Relationship to Insured Coverage Start Date Coverage End Date [facility] [address] [place] [phone] [id number] MADONNA ALVARADO Self - patient is the insured Medical (General) History Medical History History ICD Code Denies [place],DM,CVA,Lung disease,renal dise ase Surgical History Surgery Date(Month/Year) 1 1986
--- OUTSIDE RECORDS SUMMARY | 2025-04-05 15:19 | XMS_ITS | Patient Health Record ---
Author Organization Roger Guevara MD Address [address] [place], [place] [id number] Care Team Providers Care Air Analysis Technician Name Role Phone Roger Guevara Primary Care Provider [phone] Allergies No Known Allergies Results Component Value Reference Range Notes Electrocardiogram (EKG) Reviewed date:03/21/2025 01:04:36 PM Interpretation: Performing Lab: Notes/Report: Complete Blood Count Auto Di ff Reviewed date:03/24/2025 08:32:08 PM Interpretation: Performing Lab:[facility], [address] [place] [phone] Notes/Report: White Blood Count 8.6 4.8-10.8 X10*3/uL [...] NRBC Abs Auto 0.000 0.0-0.012 X10*3/uL [facility] [place]. Panel Fa Reviewed date:03/24/2025 08:32:34 PM Interpretation: Performing Lab:[facility], [address] [place] [phone] Notes/Report: Sodium 142 135-145 mmol/L Potassium 4.2 [...] 3.5-5.0 g/dL Alkaline Phosphatase 98 39-117 U/L TSH reflex Free T4 Reviewed date:03/29/2025 12:38:42 PM Interpretation: Performing Lab:[facility], [address] [place] [phone] Notes/Report: TSH reflex Free T4 0.37 0.32-4.0 uIU/mL Hold Gold Reviewed date:03/29/2025 12:38:50 PM Interpretation: Performing Lab:[facility], [address] [place] [phone] Notes/Report: Robby Rodriguez See Note Specimen held untested for 24 hours; Call to request Chemistry testing. Reason For Referral Reason Vasovagel Attack Diagnosis [...] Referral Priority Routine Referral Appointment Date 04/05/2025 Medications Medication SIG (Take, Route, Frequency, Duration) [...] Status W/U Status Risk Notes Problem Hypothyroid (26134302) Hypothyroid (E03.9) Active confirmed Problem Personal history of primary malignant neoplasm of breast (231841090) History of breast cancer (Z85.3) Active confirmed Problem Cardiovascular disease (31978543) Cardiovascular disease (I25.10) Active confirmed Vital Signs Blood pressure diastolic 70 mm Hg 03/28/2025 Height 67 in 03/28/2025 Blood pressure systolic 122 mm Hg 03/28/2025 Weight 202 lbs 03/28/2025 BMI 31.63 kg/m2 03/28/2025 Encounters Encounter Location Date Provider Diagnosis Roger Guevara MD [address] [place] [id number] 03/22/2025 Roger Guevara Cardiovascular disea se I25.10 Roger Guevara MD [address] [place] [id number] 01/07/2025 Roger Guevara History of breast cancer Z85.3 and Vasovagal attack R55 Roger Guevara MD [address] [place] [address] [id number] 03/21/2025 Roger Guevara Vasovagal attack R55 and Cardiovascular disease I25.10 Roger Guevara MD [address] [id number] 03/28/2025 Roger Guevara Hypothyroid E03.9 an d Weakness generalized R53.1 Roger Guevara MD [address] [place] [address] [id number] 12/31/2024 Roger Guevara MD [address] [place] [address] [id number] 03/29/2025 Roger Guevara Syncope R55 and Neck [...] is significant 03/28/2025 Hypothyroid (ICD-10 - E03.9) patient has [...] evaluate that as well as her head 03/29/2025 Syncope (ICD-10 - R55) Order faxed to Johnny 03/21/2025 Cardiovascular disease (ICD-10 - I25.10) 03/29/2025 Neck pain (ICD-10 - M54.2) Order faxed to Johnny 03/21/2025 Other referral to cardiology/ had hiked 12 miles with no similar problems Plan Of Treatment Pending Test Test Name Order Date Complete Blood Count Auto Diff 5 Comprehensive [place]. Panel Fast 5 TSH reflex Free T4 03/28/2025 MR head/brain wo con 03/29/2025 MR cervical spine wo con 03/29/2025 Next Appt Details Provider Name:Roger Pruett ier, 05/26/2025 11:45:00 AM, [address] [place] [address], [address], [id number], Provider Name:Roger Pruett ier, 07/08/2025 08:00:00 AM, [address] [place] [address], [address], [phone], Provider Name:Roger Pruett ier, 07/15/2025 09:30:00 AM, [address] [place] [address], [address], [id number], Insurance Providers Payer Name Payer Address Payer Phone Subscriber Number Group Number Insured Name Patient Relationship to Insured Coverage Start Date Coverage End Date [address] [place] [address] [id number] MADONNA DOOLEY Self - patient is the insured
--- OUTSIDE RECORDS SUMMARY | 2025-04-05 15:20 | XMS_ITS | Patient Health Record ---
[facility] Address [address] [place] [address] Care Team Providers Care Police Reserves Commander Name Role Phone Tr Escobar MD Primary Care Provider Saniya Washington Unavailable [phone] Allergies No Known Allergies Reason For Referral [...] W/U Status Risk Notes Problem Plantar wart (46010111) Plantar wart (B07.0) Active confirmed Problem Acquired hallux valgus (35728284) Hallux valgus (acquired), right foot (M20.11) Active confirmed Problem Gouty arthritis of right foot (4553219316948 107) Gouty arthritis of right foot (M10.9) Active confirmed Plan Of Treatment Pending Test Test Name Order Date [id number]-Cksp Destruction, 1-14 11/14/2014 Insurance Providers Payer Name Payer Address Payer Phone Subscriber Number Group Number Insured Name Patient Relationship to Insured Coverage Start Date Coverage End Date [facility] [address] [place] [address] [phone] [id number] aJne Monte Self - patient is the insured Medical (General) History Medical History History ICD Code Thyroid disorder Chicken pox Measles Surgical History Surgery Date(Month/Year)
== END 2025-04-05 15:15 | disposition home or self-care (01) ==
LOC: HO.HCS 14:02
PROVIDERS: Visit Provider Internal Medicine
DX: R55 Syncope and collapse (principal)
CPT/HCPCS: 99204; G2211

== ENCOUNTER → 2025-05-10 07:48 | Outpatient (REF) | payer OTHER, SELFPAY ==
--- NOTE | 2025-05-10 07:51 | CA_ITS ---
Transthoracic Echocardiogram Patient (Last, First, Middle): Jane Hopper, Gender: Female Date of : 1960 Age: 65 Procedure Date: 05/10/2025 Procedure Type: Transthoracic Echocardiogram Location: OP Height: 170.18 cm Weight: 90.72 kg BSA: 2.02 m2 Heart Rate: bpm BP: 122 / 68 mmHg Stock Grader: CP/RC Referring MD: Amandeep Cárdenas MD Hand Coke Drawer: Gilmer García MD Symptoms: R55 - Syncope and collapse Study Quality: Fair ECG Rhythm: Sinus Conclusions: - 1. Normal LV ejection fraction of 60 65% with impaired relaxation filling pattern 2. Normal cardiac valvular Dopplers 3. No gross pericardial effusion Findings Left Ventricle Normal left ventricular size, thickness, and systolic function. The visually estimated ejection fraction is between 60-65%. Spectral Doppler is indicative of an impaired relaxation filling pattern. E/E prime ratio is between 8 and 15 consistent with indeterminate filling pressures. Right Ventricle Normal right ventricular cavity size and systolic function. Atria Both atria are normal in size. There is no evidence of interatrial shunt. Aortic Valve Normal aortic valve structure and function. There is no aortic valve stenosis. There is no aortic valve regurgitation. Mitral Valve Normal mitral valve structure and function. There is trace mitral valve regurgitation. There is no mitral valve stenosis. Pulmonic Valve The pulmonic valve is likely normal. Tricuspid Valve Normal tricuspid valve structure. Tricuspid regurgitation envelope is inadequate for calculation of right ventricular systolic pressure. Normal right atrial pressure. Great Vessels All visible segments of the aorta are normal in size. The pulmonary artery was not well visualized. Venous The inferior vena cava is normal in size and collapses greater than 50% with inspiration. Pericardium/Pleural There is no evidence of pericardial effusion. Prior Study Comparison No prior study available for comparison. Measurements 2D Linear Measurements IVSd: 0.97 0.6-0.9/0.6-1.0 cm LVIDd: 4.14 3.9-5.3/4.2-5.9 cm LVIDd Index: 2.05 2.4-3.2/2.2-3.1 cm/m2 LVIDs: 2.57 2.0-3.6 cm LVPWd: 1.04 0.7-1.1 cm LA Diam: 3.00 2.7-3.8/3.0-4.0 cm LAIDs Index: 1.49 1.5-2.3 cm/m2 LV Mass: 167.88 67-162/88-224 g LV Mass Index: 83.11 43-95/49-115 g/m2 LVOT Diam: 2.30 3.0+(-)1.3 cm 2D Systolic Function EF 4C: 64.90 >55% EF 2C: 64.60 >55% EF BiP: 64.10 >55% Mitral Valve MV Pk E: 0.62 MV PK A: 0.78 MV Decel Time: 287.00 E/A: 0.80 E'Lateral: 8.05 E'Medial: 6.96 E/E' Med: 8.90 E/E' Lat: 7.70 PHT: 84.00 MVA PHT: 2.62 Decel Stevens: 2.16 Aortic Valve AoV Pk Tom: 1.34 AoV Mn Tom: 0.92 AoV VTI: 0.28 AoV Pk Grad: 7.00 Aov Mn Grad: 4.00 MIYA Cont.VTI: 3.48 LVOT LVOT Pk Tom: 0.97 LVOT Mn Tom: 0.65 LVOT VTI: 0.23 LVOT Pk Grad: 4.00 LVOT Mn Grad: 2.00 LVOT Diam: 2.30 LVOT Area: 4.15 Diastolic Function MV Pk E: 0.62 MV Pk A: 0.78 E/A: 0.80 E'Medial: 6.96 E/E' Med: 8.90 E' Laterial: 8.05 E/E' Lat: 7.70 Right Ventricle TAPSE (mm): 27.20 TVS' Tom: 11.10 Tricuspid Valve RA Press: 3.00 Great Vessels Aorta Sinus of Valsalva: 3.00 2.0-3.5 cm Ao Asc: 3.10 2.1-3.4 cm Pulmonary Veins Pulm Vein S/D 1.50 Pulmonary Valve PV Pk Tom: 0.96 Peak PV Grad: 4.00 Updated in Other Vendor System with Status of Final Gilmer García MD electronically signed on 05/11/2025 12:45:10 PM with status of Final
--- NOTE | 2025-05-10 07:51 | HM_ITS ---
Cardiac event monitor Indication: Syncope Technique: Patient was hooked up to cardiac event monitor from 05/10/2025 to 06/09/2025 for total period of 30 days. Total wear time was 26.2 days Findings: Baseline was normal sinus rhythm 100% of the time with minimal heart rate of 44 beats per minute sinus bradycardia and a maximum heart rate 136 beats per minute sinus tachycardia. Average heart rate of 75 beats per minute. No significant pauses or av conduction abnormalities noted No significant arrhythmias noted. Patient marked the counter 15 times with 2 times although symptoms not specified correlating with sinus rhythm or sinus tachycardia. Conclusion: 1. Baseline was normal sinus rhythm with average heart rate of 75 beats per minute with no significant pauses 2. No significant arrhythmias noted 3. Patient triggered events correlated with sinus rhythm or sinus tachycardia MTDD
--- OUTSIDE RECORDS SUMMARY | 2025-05-10 07:51 | XMS_ITS | Clinical Summary ---
Author Organization [facility] [address] [facility] Address [address] [place] [address] Care Team Providers Care Economics Faculty Member Name Role Phone Unavailable Primary Care Provider Unavailabl e Social History Tobacco Use Types Packs/Day Years Used Date Smoking Tobacco: Never Assessed Comments Unknown Sex and Gender Information Value Date Recorded Sex Assigned at Not on file Legal Sex Female 11:18 AM EST Gender Identity Not on file Sexual Orientation Not on file Plan of Treatment Upcoming Encounters Date Type Department Care Team (Late st Contact Info) Description 06/14/2025 1:00 PM EDT Appointment [facility] [address] [place] [address] Health Maintenance Due Date Last Done Comments Breast Cancer Screening 1960 DTaP,Tdap,and Td Vaccines (1 - Tdap) 1977 Pneumococcal Vaccine: 50+ Ye ars (1 of 1 - PCV) 02/02/2008 Zoster Vaccines (1 of 2) 02/02/2008 COVID-19 Vaccine ( - 2023-2 5 season) 2024 Depression Screening 09/22/2024 Colorectal Cancer Screening: Colonoscopy 04/07/2025 Falls Risk Assessment 04/07/2025 Hepatitis C Screening 04/07/2025 Osteoporosis Screening (Bone Density Screening) 04/07/2025 Social Influencers of Health Screening 04/07/2025 Influenza Vaccine (#1) 2025 RSV Immunization Adult Patie nts (1 - 1-dose 75+ series) 2033 HIB Vaccines Aged Out No longer eligi ble based on patient's age to complete this topic HPV Vaccines Aged Out No longer eligi ble based on patient's age to complete this topic Hepatitis A Vaccines Aged Out No long er eligible based on patient's age to complete this topic Hepatitis B Vaccines Aged Out No long er eligible based on patient's age to complete this topic IPV Vaccines Aged Out No longer eligi ble based on patient's age to complete this topic MMR Vaccines Aged Out No longer eligi ble based on patient's age to complete this topic Meningococcal ACWY Vaccine Aged Out N o longer eligible based on patient's age to complete this topic Meningococcal B Vaccine Aged Out No l onger eligible based on patient's age to complete this topic RSV Immunization Patients Un luis 20 months Aged Out No longer eligible b ased on patient's age to complete this topic Varicella Vaccines Aged Out No longer eligible based on patient's age to complete this topic Insurance [facility]IC[facility]
--- OUTSIDE RECORDS SUMMARY | 2025-05-10 07:51 | XMS_ITS | Patient Health Record ---
Author Organization [facility] Address [address] [place] [address] Care Team Providers Care Hand Alterations Tailor Name Role Phone Luz (RETIRED) Tr NAVA Primary Care Provide r Unavailable Oren Goss Unavailable [phone] Reason For Referral No Information Medications Medication SIG (Take, Route, Frequency, Duration) Notes Start Date End Date Status Levothyroxine Sodium 100 MCG Oral for 90 Active Immunizations Vaccine Route Administration Date Status Comme nts Flu vaccine no Preserv 3 and > Unknown 04/09/2016 Admin istered Problems Problem Type SNOMED Code ICD Code Onset Dates Problem Status W/U Status Risk Notes Problem 893389213 Encounter for screening for malignant neoplasm of colon (Z12.11) Active confirmed Problem Screening for malignant neoplasm of rectum (732139811) Encounter for screening for malignant neoplasm of rectum (Z12.12) Active confirmed Problem 73084618 Preprocedural examination (Z01.818) Active confirmed Plan Of Treatment Future Test Test Name Order Date COLONOSCOPY 04/09/2016 Insurance Providers Payer Name Payer Address Payer Phone Subscriber Number Group Number Insured Name Patient Relationship to Insured Coverage Start Date Coverage End Date [facility] [employer] [employer] [address] [place] [phone] [id number] MADONNA ALVARADO Self - patient is the insured Medical (General) History Medical History History ICD Code Denies [place],DM,CVA,Lung disease,renal dise ase Surgical History Surgery Date(Month/Year) 1 1986
--- OUTSIDE RECORDS SUMMARY | 2025-05-10 07:51 | XMS_ITS | Continuity of Care Document ---
Author Organization [facility] [address] [place] [address] Phone [phone] Care Team Providers Care Bias Binding Cutter Name Role Phone Tr Escobar M.D. Care Team Information Receiv er [phone] Problems Active Problems Provider Date Stephanie thyroiditis [...] SIG Qnty Indications Ordering Provider Date Levothyroxine [id number] Tablets Take 1 Tablet By Mouth Every Day 90tabs Kwesi Wong M.D. 05/25/2023 Iwkzsugfeue5yg Tablets Take 1 Tablet By Mouth Daily [...] 0.82-1.77 TSH With Reflex To FT4 09/17/2023 [facility] TSH With Reflex To FT4 1.98 uIU/mL (0.4-4.2) TSH With Reflex To FT4 05/27/2023 [facility] TSH With Reflex To FT4 <pending> TSH With Reflex To FT4 05/20/2023 [facility] TSH With Reflex To FT4 0.08 uIU/mL Low (0.4-4.2) Free T4 05/20/2023 [facility] Free T4 1.89 ng/dL High (0.70-1.80 ) Procedures Date Code Description Status 06/28/2024 NSHOWOFF No Show Office Visit Complet ed 03/27/2022 71722 Collection Of Capillary Bloo d Specimen Completed [...]
--- OUTSIDE RECORDS SUMMARY | 2025-05-10 07:51 | XMS_ITS | Patient Health Record ---
[facility] Address [address] [place] [address] Care Team Providers Care Editor House Organ Name Role Phone Tr Escobar MD Primary Care Provider Saniya Washington Unavailable [phone] Allergies No Known Allergies Reason For Referral [...] W/U Status Risk Notes Problem Plantar wart (91396012) Plantar wart (B07.0) Active confirmed Problem Hallux valgus (acquired), right foot (M20.11) Active confirmed Problem Gouty arthritis of right foot (0009102298396 107) Gouty arthritis of right foot (M10.9) Active confirmed Plan Of Treatment Pending Test Test Name Order Date [id number] Destruction, 1-14 11/14/2014 Insurance Providers Payer Name Payer Address Payer Phone Subscriber Number Group Number Insured Name Patient Relationship to Insured Coverage Start Date Coverage End Date [facility] [address] [place] [address] [id number] Jane Monte Self - patient is the insured Medical (General) History Medical History History ICD Code Thyroid disorder Chicken pox Measles Surgical History Surgery Date(Month/Year)
--- OUTSIDE RECORDS SUMMARY | 2025-05-10 07:51 | XMS_ITS | Clinical Summary ---
Author Organization [facility] Address [address] [facility] [address] [place] [address] Phone Care Team Providers Care Social Media Editor Name Role Phone Tr Escobar MD Primary Care Provider Active Problems Problem Noted Date Diagnosed Date Sensorineural hearing loss of left ear 6 Assessment & Plan (04/17/2016 12:42 PM EDT): Fluctuating hearing loss and left ear without dizziness. Exam today revealed healthy-appearing tympanic membranes without infection or effusion. We reviewed her audiogram together which demonstrated normal hearing thresholds with excellent word clarity in the right. She had an upsloping moderate to mild sensorineural hearing loss in the left with poor word clarity. An MRI of her brain was reportedly unremarkable. She has had steroid intervention with documented improvement of her hearing, though the reports are unavailable at this time. We discussed potential fluctuating hearing loss versus endolymphatic hydrops along with the general trend of hearing decline in the left ear. At this point of time, repeated doses of steroids would not be beneficial since her hearing improved spontaneously. For now, she will continue to observe. She may trial a period of low-salt diet to see if this help stabilize her hearing. She is already starting to compensate favoring her right ear. She was happy with information provided. I advised having her hearing checked every couple of years to assess the stability and can do this closer to home. She will will follow-up as needed. - Reevaluation and audiogram every few years - Follow-up as needed Social History Tobacco Use Types Packs/Day Years Used Date Smoking Tobacco: Never Assessed Education Answer Date Recorded Are you interested in more education? Not on shadia e 01/17/2023 Are you concerned about learning? Not on file 01/17/2023 No 01/17/2023 No 01/17/2023 Digital Access Answer Date Recorded No 02/17/2023 No 02/17/2023 No 02/17/2023 Reliable internet access at home? Not on file 02/17/2023 Device with a working camera? Not on file Comments Unknown Sex and Gender Information Value Date Recorded Sex Assigned at Not on file Legal Sex Female 3:13 PM EST Gender Identity Not on file Sexual Orientation Not on file Last Filed Vital Signs Vital Sign Reading Time Taken Comments Blood Pressure 111/73 04/17/2016 10:40 AM EDT Pulse 56 04/17/2016 10:40 AM EDT Temperature - - Respiratory Rate - - Oxygen Saturation - - Inhaled Oxygen Concentration - - Weight 86.2 kg (190 lb) 04/17/2016 10:40 AM EDT Height 170.2 cm (5' 7 ) 04/17/2016 10:40 AM EDT Body Mass Index 29.76 04/17/2016 10:40 AM EDT Plan of Treatment Health Maintenance Due Date Last Done Comments Adult Td,Tdap Booster 1960 LIPID PANEL 1960 DEPRESSION SCREENING 1970 SMOKING Hx and SMOKELESS TOBACCO SCREENING 1971 HEPATITIS C SCREENING 02/02/1976 MAMMOGRAM 1998 COLOGUARD 2003 COLONOSCOPY 2003 COLORECTAL CANCER SCREENING 2003 FIT TEST 2003 FOBT 2003 SIGMOIDOSCOPY 2003 VIRTUAL COLONOSCOPY 2003 PNEUMOCOCCAL VACCINES (50+ years) (1 of 1 - PCV) 02/02/2008 ZOSTER VACCINES (1 of 2) 02/02/2008 OSTEOPOROSIS SCREENING INITI AL (ONE-TIME) 2023 COVID-19 VACCINE (3 - 2023-2 5 season) 2024 11/12/2020, 10/22/2020 RSV VACCINE (1 - 1-dose 75+ series) 2033 HEPATITIS A VACCINES Aged Out No long er eligible based on patient's age to complete this topic HIB VACCINES Aged Out No longer eligi ble based on patient's age to complete this topic MENINGOCOCCAL VACCINES (ACWY) Aged Out No longer eligible based on patient's age to complete this topic MENINGOCOCCAL VACCINES (B) Aged Out N o longer eligible based on patient's age to complete this topic Medical Devices Not on file Insurance PPO PPO PPO PPO PPO PPO PPO [facility] PPO [facility] PPO Care Teams Social Media Editor Relationship Specialty Start Date End Date Tr Escobar MD [address] [place] [address] [place] [address] PCP - General 11/21/15 Additional Source Comments The information contained in this document represents components of the legal health record. It is not the complete legal health record.[facility]
--- OUTSIDE RECORDS SUMMARY | 2025-05-10 07:51 | XMS_ITS | Patient Health Record ---
Author Organization Roger Guevara MD Address [address] [place], [place] [id number] Care Team Providers Care Field Interviewer Name Role Phone Roger Guevara Primary Care Provider Allergies No Known Allergies Results Component Value Reference Range Notes Electrocardiogram (EKG) Reviewed date:03/21/2025 01:04:36 PM Interpretation: Performing Lab: Notes/Report: Complete Blood Count Auto Di ff Reviewed date:03/24/2025 08:32:08 PM Interpretation: Performing Lab:[facility], [address] [place] [phone] Notes/Report: White Blood Count 8.6 4.8-10.8 X10*3/uL [...] NRBC Abs Auto 0.000 0.0-0.012 X10*3/uL Comprehensive [place]. Panel Fa Reviewed date:03/24/2025 08:32:34 PM Interpretation: Performing Lab:[facility], [address] [place] [phone] Notes/Report: Sodium 142 135-145 mmol/L Potassium 4.2 [...] T4 Reviewed date:03/29/2025 12:38:42 PM Interpretation: Performing Lab:[facility], [address] [place] [phone] Notes/Report: TSH reflex Free T4 0.37 0.32-4.0 uIU/mL Hold Gold Reviewed date:03/29/2025 12:38:50 PM Interpretation: Performing Lab:[facility], [address] [place] [phone] Notes/Report: Robby Rodriguez See Note Specimen held [...] history of primary malignant neoplasm of breast (884160937) History of breast cancer (Z85.3) Active confirmed Problem Cardiovascular disease (36319745) Cardiovascular disease (I25.10) Active confirmed Vital Signs Blood pressure diastolic 70 mm Hg 03/28/2025 Height 67 in 03/28/2025 Blood pressure systolic 122 mm Hg 03/28/2025 Weight 202 lbs 03/28/2025 BMI 31.63 kg/m2 03/28/2025 Encounters Encounter Location Date Provider Diagnosis Roger Guevara MD [address] [place] [id number] 03/22/2025 Roger Guevara Cardiovascular disea se I25.10 Roger Guevara MD [address] [place] [id number] 01/07/2025 Roger Guevara History of breast cancer Z85.3 and Vasovagal attack R55 Roger Guevara MD [address] [facility] [address] [id number] 03/21/2025 Roger Guevara Vasovagal attack R55 and Cardiovascular disease I25.10 Roger Guevara MD [address] [place] [address] [id number] 03/28/2025 Roger Guevara Hypothyroid E03.9 an d Weakness generalized R53.1 Roger Guevara MD [address] [place] [address] [address] [place] [id number] 12/31/2024 Roger Guevara MD [address] [place] [address] [id number] 03/29/2025 Roger Guevara Syncope R55 and Neck [...] Complete Blood Count Auto Diff 5 Comprehensive [place]. Panel Fast 5 TSH reflex Free T4 03/28/2025 MR head/brain wo con 03/29/2025 MR cervical spine wo con 03/29/2025 Next Appt Details Provider Name:Roger Pruett ier, 05/26/2025 11:45:00 AM, [address] [place] [address], [address], [phone], Provider Name:Roger Pruett ier, 07/08/2025 08:00:00 AM, [address] [place] [address], [address], [phone], Provider Name:Roger Pruett ier, 07/15/2025 09:30:00 AM, [address] [place] [address], [address], [phone], Insurance Providers Payer Name Payer Address Payer Phone Subscriber Number Group Number Insured Name Patient Relationship to Insured Coverage Start Date Coverage End Date [address] [facility] ILYA GAUTHIER [phone] [id number] MADONNA DOOLEY Self - patient is the insured
== END ==
LOC: HO.CARD 07:48
PROVIDERS: PCP Internal Medicine; Visit Provider Internal Medicine
DX: R55 Syncope and collapse (principal)
CPT/HCPCS: 93270; 93306

== ENCOUNTER → 2025-05-10 07:51 | Outpatient (BNV) | payer OTHER, SELFPAY | PROVIDERS: Visit Provider Internal Medicine Cardiovascular Disease | DX: R55 Syncope and collapse (principal) | CPT/HCPCS: 93306 ==

== ENCOUNTER 2025-06-23 14:11 | Outpatient (AMB) | payer OTHER, SELFPAY ==
--- OUTSIDE RECORDS SUMMARY | 2025-03-21 07:45 | XMS_ITS ---
Author Organization Roger Guevara MD Address [address] [place], [place] [id number] Care Team Providers Care Sports Medicine Coordinator Name Role Phone Roger Guevara Primary Care Provider Allergies No Known Allergies Results Component Value Reference Range Notes Electrocardiogram (EKG) Reviewed date:03/21/2025 01:04:36 PM Interpretation: Performing Lab: Notes/Report: Reason For Referral Reason Vasovagel Attack Diagnosis 1 Vasovagal attack (R5 5) Referral Organization Roger Guevara MD Referring Provider First Name Roger Referring Provider Last Name Paola Referring Provider Speciality Internal M edicine Referred Provider Gilmer García Referred Provider Specialty Cardiovascul ar Disease General Notes Lisbeth Mclaughlin 0 03/21/2025 12:17:59 PM >referral info and EKG faxed, Juliana Bradshaw 03/31/2025 08:08:08 AM >appt scheduled 04/05, Lisbeth Mclaughlin 03/31/2025 02:33:16 PM > patient is aware of appt Referral Priority Routine Referral Appointment Date 04/05/2025 REASON FOR VISIT ANOTHER EPISODE OF DIZZINESS Medications Medication SIG (Take, Route, Frequency, Duration) Notes Start Date End Date Status Vitamin D 25 MCG (1000 UT) 1 tablet Oral ly every other day Active Anastrozole 1 MG 1 tablet Orally Once a day Active Levothyroxine Sodium 112 MCG 1 tablet in the morning on an empty stomach Orally Once a day Active Vital Signs Blood pressure systolic 122 mm Hg 03/21/20 25 Blood pressure diastolic 70 mm Hg 025 Height 67 in 03/21/2025 Weight 200 lbs 03/21/2025 BMI 31.32 kg/m2 03/21/2025 Encounters Encounter Location Date Provider Diagnosis Roger Guevara MD [address] [place] [address] [place] [phone] 03/21/2025 Roger Guevara Vasovagal attack R55 and Cardiovascular disease I25.10 Assessments Encounter Date Diagnosis (ICD Code) Assessment Notes Treatment Notes Treatment Clinical Notes Section Notes 03/21/2025 Vasovagal attack (ICD-10 - R55) sounds like the same thing she had in december. sounds like a vasovagal the ecg is a little different from the er ecg but i don't think it is significant 03/21/2025 Cardiovascular disease (ICD-10 - I25.10) 03/21/2025 Other referral to cardiology/ sanjiv hiked 12 miles with no similar problems Plan Of Treatment Treatment Notes Assessment Notes Vasovagal attack sounds like the same thing she had in december. sounds like a vasovagal the ecg is a little different from the er ecg but i don't think it is significant Other referral to cardiolo gy/ had hiked 12 miles with no similar problems Referrals Referral Date Details 03/21/2025 03/21/2025, Vasovage l Attack, GilmerPatton Next Appt Details Follow Up: 1 Week, Reason: Provider Name:Roger torres, 07/08/2025 08:00:00 AM, [address] [place] [address], [address] [place] [address], [phone], Provider Name:Roger torres, 07/15/2025 09:30:00 AM, [address] [place] [address], Suite [facility], [place], [place], [phone], Progress Notes * SYLVESTER BOWMANEDOB: [birth year] (65 yo F)Acc No.[id number]:03/21/2025 Progress Notes Patient: MADONNA VELARDE Provider: Jaxson Guevara MD :1960 A ge:65 Y S ex:Female Date:03/21/2025 Address:[address] [place], [place] [phone] Subjective: * Chief Complaints: * A NOTHER EPISODE OF DIZZINESS * HPI: S ymptom(s): patient is a 65 yo female had episode of dizzinees after eating, went into bathrrom and got very sweaty. got on floor it got better through the night. yesterday was walking and felt wobbly. layed on grass. was very sweaty again. head felt like she was drunk. did throw up. * ROS: G eneral/Constitutional: Denies C hills. D enies F atigue. D enies F ever. D enies H eadache. E NT: Denies S ore throat. R espiratory: Denies C ough. D enies S hortness of breath at rest. D enies S hortness of breath with exertion. C ardiovascular: Denies C hest pain at rest. D enies C hest pain with exertion. A dmits D izziness. G astrointestinal: Denies D iarrhea. D enies N ausea. * Medical History: * Surgical History: * Hospitalization/Major Diagno stic Procedure: * Medications: T akingLevothyroxine Sodium 112 MCG Tablet 1 tablet in the morning on an empty stomach Orally Once a day Vitamin D 25 MCG (1000 UT) Tablet 1 tablet Orally every other day Anastrozole 1 MG Tablet 1 tablet Orally Once a day Taking Levothyroxine Sodium 112 MCG Tablet 1 tablet in the morning on an empty stomach Orally Once a day Taking Vitamin D 25 MCG (1000 UT) Tablet 1 tablet Orally every other day Taking Anastrozole 1 MG Tablet 1 tablet Orally Once a day * Allergies: N .K.D.A.yes[Allergies Verified] Objective: * Vitals: H t: 67, Wt: 200, BMI:31.32, BP:122/70, Ht-cm: 170.18, Wt-k.72. * Examination: G eneral Examination: GENERAL APPEARANCE: a lert, well hydrated, in no distress.? HEAD: n ormocephalic. SKIN: g ood turgor. HEART: r egular rate and rhythm. LUNGS: n o wheezes, rales, rhonchi, good air movement, clear to auscultation bilaterally. Assessment: * Assessment: 1. V asovagal attack - R55 (Primary) 2 . C ardiovascular disease - I25.10? Plan: * Treatment: 2. C ardiovascular disease I maging: Electrocardiogram (EKG) (Performed Date - 03/21/2025) 3.?Others? Notes: referral to cardiology/ had hiked 12 miles with no similar problems?? * Procedure Codes: 9 3000 -ELECTROCARDIOGRAM, COMPLETE * Follow Up: 1 Week * * Sign off status: Completed true * Provider: Jaxson Guevara MD Date: 0 03/21/2025 Generated for Kendalli julia/Jaspreet/eTransmitting on: 1 03:48 PM EDT History and Physical Notes * HPI (History of Present Illness) Category Sub-Category Detail Notes Category Not es Symptom(s) patient is a 65 yo female had episode of dizzinees after eating, went into bathrrom and got very sweaty. got on floor it got better through the night. yesterday was walking and felt wobbly. layed on grass. was very sweaty again. head felt like she was drunk. did throw up. Examination Category Sub-Category Detail Notes Category Not es General Examination GENERAL APPEARANCE: alert, w ell hydrated, in no distress HEAD: normocephalic HEART: regular rate and rhy thm LUNGS: no wheezes, rales, r honchi, good air movement, clear to auscultation bilaterally SKIN: good turgor Consultation Request Notes Referral Date Referring Provider Referred Provider Not es 03/21/2025 Roger Guevara Nirav Vasovagel Zuri mcneil
--- OUTSIDE RECORDS SUMMARY | 2025-03-22 06:00 | XMS_ITS ---
Author Organization Roger Guevara MD Address [address] [place] [phone] Care Team Providers Care Maintenance Repairman Name Role Phone Roger Guevara Primary Care Provider [phone] REASON FOR VISIT CMP and CBC Encounters Encounter Location Date Provider Diagnosis Roger Guevara MD [address] [place] [phone] 03/22/2025 Roger Guevara Cardiovascular disea se I25.10 Assessments Encounter Date Diagnosis (ICD Code) Assessment Notes Treatment Notes Treatment Clinical Notes Section Notes 03/22/2025 Cardiovascular disease (ICD-10 - I25.10) Plan Of Treatment Pending Test Test Name Order Date Complete Blood Count Auto Diff 5 Comprehensive [place]. Panel Fast 5 Next Appt Details Provider Name:Roger torres, 07/08/2025 08:00:00 AM, [address] [place] [address], [phone], Provider Name:Roger torres, 07/15/2025 09:30:00 AM, [address] [place] [address], [phone], Progress Notes * JOSHUASYLVESTER PARKERMILLEROB: [birth year] (65 yo F)Acc No.[id number]:03/22/2025 Progress Note Patient: MADONNA VELARDE Provider: Jaxson Guevara MD :1960 A ge:65 Y S ex:Female Date:03/22/2025 Address:[address] [place] [address] [id number] Subjective: * Chief Complaints: * 1 . CMP and CBC. * Medical History: Objective: * Vitals: Assessment: * Assessment: 1. C ardiovascular disease - I25.10 (Primary) Plan: * Treatment: * Procedure Codes: 3 6415 VENIPUNCT, ROUTINE* * * The named appointment provid er may or may not be the originator of this progress note, and it is not deemed complete until electronically signed by the appointment provider. Sign off status: Pending * Provider: Jaxson Guevara MD Date: 0 03/22/2025 Generated for Mary Ann dumont/Jaspreet/Ivan on: 03:47 PM EDT
--- OUTSIDE RECORDS SUMMARY | 2025-03-28 07:45 | XMS_ITS ---
Author Organization Roger Guevara MD Address [address] [place] [phone] Care Team Providers Care Adobe Layer Name Role Phone Roger Guevara Primary Care Provider [phone] Allergies No Known Allergies REASON FOR VISIT one week f/u Medications Medication SIG (Take, Route, Frequency, Duration) Notes Start Date End Date Status Levothyroxine Sodium 112 MCG 1 tablet in the morning on an empty stomach Orally Once a day Active Vitamin D 25 MCG (1000 UT) 1 tablet Oral ly every other day Active Anastrozole 1 MG 1 tablet Orally Once a day Active Problems Problem Type SNOMED Code ICD Code Onset Dates Problem Status W/U Status Risk Notes Problem Hypothyroid (43749304) Hypothyroid (E03.9) Active confirmed Vital Signs Blood pressure systolic 122 mm Hg 03/28/20 25 Blood pressure diastolic 70 mm Hg 025 Height 67 in 03/28/2025 Weight 202 lbs 03/28/2025 BMI 31.63 kg/m2 03/28/2025 Encounters Encounter Location Date Provider Diagnosis Roger Guevara MD [address] [place] [phone] 03/28/2025 Roger Guevara Hypothyroid E03.9 and Weakness generalized R53.1 Assessments Encounter Date Diagnosis (ICD Code) Assessment Notes Treatment Notes Treatment Clinical Notes Section Notes 03/28/2025 Hypothyroid (ICD-10 - E03.9) patient has history of hypothyroid and maybe be related to that 03/28/2025 Weakness generalized (ICD-10 - R53.1) not finding any solution. not getting pain in chest but is going to see cardiology/ found out 03/29 that she had a fall and hurt her neck and since then this problem has come on. states she has a loud pop in her neck since then so will evaluate that as well as her head Plan Of Treatment Treatment Notes Assessment Notes Hypothyroid patient has history of hypothyroid and maybe be related to that Weakness generalized not finding any mimi ution. not getting pain in chest but is going to see cardiology/ found out 03/29 that she had a fall and hurt her neck and since then this problem has come on. states she has a loud pop in her neck since then so will evaluate that as well as her head Pending Test Test Name Order Date TSH reflex Free T4 03/28/2025 Next Appt Details Follow Up: 2 Months, Reason: Provider Name:Roger torres, 07/08/2025 08:00:00 AM, [address] [place] [address], [address], [phone], Provider Name:Roger torres, 07/15/2025 09:30:00 AM, [address] [place] [address], Suite [facility], [place], [place], [phone], Progress Notes * SILVESTRE BOWMANOB: [birth year] (65 yo F)Acc No.[id number]:03/28/2025 Progress Notes Patient: MADONNA VELARDE Provider: Jaxson Guevara MD :1960 A ge:65 Y S ex:Female Date:03/28/2025 Address:[address] [place], [place] [id number] Subjective: * Chief Complaints: * O ne week f/u * HPI: S ymptom(s): patient is a 65 yo female here for one week follow up visit didn't feel good 3 days ago. felt the sensation and layed on the couch and felt sweaty a nd clammy/ 2 days ago felt good when she got up but didn't feel good and stayed in the car at the [employer]./ took pulse and it was 80. * ROS: G eneral/Constitutional: Denies Willie webb. Rosangela enies F atigue. D enies F ever. D enies H eadache. E NT: Denies S ore throat. R espiratory: Denies C ough. D enies S hortness of breath at rest. D enies S hortness of breath with exertion. C ardiovascular: Denies C hest pain at rest. D enies C hest pain with exertion. A dmits D izziness. D enies P alpitations. D enies S hortness of breath. G astrointestinal: Denies D iarrhea. D enies [...] Tablet 1 tablet Orally Once a day Medication List reviewed and reconciled with the patientTaking Levothyroxine Sodium 112 MCG Tablet 1 tablet in the morning on an empty stomach Orally Once a day Taking Vitamin D 25 MCG (1000 UT) Tablet 1 tablet Orally every other day Taking Anastrozole 1 MG Tablet 1 tablet Orally Once a day Medication List reviewed and reconciled with the patient * Allergies: N .K.D.A.yes[Allergies Verified] Objective: * Vitals: H t: 67, Wt: 202, BMI:31.63, BP:122/70, Ht-cm: 170.18, Wt-k.63. * Examination: G eneral Examination: GENERAL APPEARANCE: a lert, well hydrated, in no distress.? SKIN: g ood turgor. HEART: r egular rate and rhythm, no murmurs, rubs, gallops.? LUNGS: n o wheezes, rales, rhonchi, good air movement, clear to auscultation bilaterally. Assessment: * Assessment: 1. H ypothyroid - E03.9 (Primary) 2 . W eakness generalized - R53.1 ? Plan: * Treatment: 2. W eakness generalized Notes: not finding any solution. not getting pain in chest but is going to see cardiology/ found out 03/29 that she had a fall and hurt her neck and since then this problem has come on. states she has a loud pop in her neck since then so will evaluate that as well as her head * Procedure Codes: 3 6415 VENIPUNCT, ROUTINE* * Follow Up: 2 Months * * Sign off status: Completed true * Provider: Jaxson Guevara MD Date: 0 03/28/2025 Generated for Printi ng/Jaspreet/eTransmitting on: 1 03:48 PM EDT History and Physical Notes * HPI (History of Present Illness) Category Sub-Category Detail Notes Category Not es Symptom(s) patient is a 65 yo female here for one week follow up visit didn't feel good 3 days ago. felt the sensation and layed on the couch and felt sweaty a nd clammy/ 2 days ago felt good when she got up but didn't feel good and stayed in the car [place] the [employer]./ took pulse and it was 80 Examination Category Sub-Category Detail Notes Category Not es General Examination GENERAL APPEARANCE: alert, w ell hydrated, in no distress HEART: regular rate and rhy thm, no murmurs, rubs, gallops LUNGS: no wheezes, rales, r honchi, good air movement, clear to auscultation bilaterally SKIN: good turgor
--- OUTSIDE RECORDS SUMMARY | 2025-03-29 09:33 | XMS_ITS ---
Author Organization Roger Guevara MD Address [address] [place] [phone] Care Team Providers Care Converter Supervisor Name Role Phone Roger Guevara Primary Care Provider REASON FOR VISIT ? further testing Encounters Encounter Location Date Provider Diagnosis Roger Guevara MD [address] [place] [address] [place] [id number] 03/29/2025 Roger Guevara Syncope R55 and Neck pain M54.2 Assessments Encounter Date Diagnosis (ICD Code) Assessment Notes Treatment Notes Treatment Clinical Notes Section Notes 03/29/2025 Syncope (ICD-10 - R55) Order faxed to [facility] 03/29/2025 Neck pain (ICD-10 - M54.2) Order faxed to [facility] Plan Of Treatment Treatment Notes Assessment Notes Syncope Order faxed to [facility] Neck pain Order faxed to [facility] S Pending Test Test Name Order Date MR head/brain wo con 03/29/2025 MR cervical spine wo con 03/29/2025 Next Appt Details Provider Name:Roger torres, 07/08/2025 08:00:00 AM, [address] [place] [address], [place] [address], [place], [place], [phone], Provider Name:Roger torres, 07/15/2025 09:30:00 AM, [address] [place] [address], [address], [phone], Progress Notes * SILVESTRE BOWMANOB: [birth year] (65 yo F)Acc No.[id number]:03/29/2025 Patient: MADONNA VELARDE :1960 A ge:65 Y S ex:Female Address:[address] [place] [address], [address] Subjective: * Chief Complaints: * ? further testing * Medical History: * Surgical History: * Hospitalization/Major Diagno stic Procedure: * Medications: Objective: * Vitals: * Physical Examination: Assessment: * Assessment: 1. S yncope - R55 2 . N chelsey pain - M54.2 Plan: * Treatment: 2. N chelsey pain I maging: MR cervical spine wo con Notes: Order faxed to [facility] * Procedure Codes: * true * Date: Generated for Mary Ann dumont/Jaspreet/eTransmitting on: 03:48 PM EDT
--- OUTSIDE RECORDS SUMMARY | 2025-06-16 12:45 | XMS_ITS ---
Author Organization Roger Guevara MD Address [address] [place] [address] [place] [phone] Care Team Providers Care Radio Repair Teacher Name Role Phone Roger Guevara Primary Care Provider Allergies No Known Allergies REASON FOR VISIT 2 MO F/U Encounters Encounter Location Date Provider Diagnosis Roger Guevara MD [address] [place] [address] [place] [id number] 06/16/2025 Roger Guevara Plan Of Treatment Next Appt Details Provider Name:Roger Pruett ier, 07/08/2025 08:00:00 AM, [address] [place] [address], [address], [phone], Provider Name:Roger Pruett ier, 07/15/2025 09:30:00 AM, [address] [place] [address], [address], [phone], Progress Notes * SYLVESTER BOWMANEDOB: [birth year] (65 yo F)Acc No.[id number]:06/16/2025 Progress Notes Patient: MADONNA VELARDE Provider: Jaxson Guevara MD :1960 A ge:65 Y S ex:Female Date:06/16/2025 Address:[address] [place] [address] [address] [id number] Subjective: * Chief Complaints: * 1 . 2 MO F/U. * ROS: G eneral/Constitutional: Denies C hills. D enies F atigue. D enies F ever. D enies H eadache. E NT: Denies S ore throat. R espiratory: Denies C ough. D enies S hortness of breath at rest. D enies S hortness of breath with exertion. G astrointestinal: Denies D iarrhea. D enies N ausea. * Medical History: M edical History Verified. * Allergies: N .K.D.A. Objective: * Vitals: Assessment: Plan: * Treatment: * * The named appointment provid er may or may not be the originator of this progress note, and it is not deemed complete until electronically signed by the appointment provider. Sign off status: Pending * Provider: Jaxson Guevara MD Date: 0 06/16/2025 Generated for Mary Ann dumont/Jaspreet/Ivan on: 1 03:48 PM EDT
[2025-06-23 14:20] VITALS: BP 110/62; PULSE 81; BMI 31.1
--- NOTE | 2025-06-23 14:20 | MHC.OFFVIS ---
Vital Signs 06/23/25 14:20 Height 5 ft 7 in Weight 198 lb 6.656 oz BMI 31.1 BP 110/62 Blood Pressure Location Lt brachial Position Sitting Pulse 81 Pulse Source Pulse Oximeter Intake Visit Reasons: s/p tilt, echo/ day HS Concessions Manager Required: No Allergies No Known Allergies Allergy (Verified 06/23/25 14:23) Medication List - Last Reconciled 06/23/25 by Esthela Smith, RN [facility] anastrozole 1 mg PO DAILY levothyroxine 112 mcg PO DAILY multivitamin 1 tab PO DAILY HPI HPI s/p tilt, echo/ day HS: Details: Jane is a 65-year-old female with past medical history of hypothyroidism who is undergoing cardiac evaluation for presyncopal type events. On last visit a cardiac event monitor, echocardiogram and tilt-table test were ordered and she now presents for follow-up. Today she reports that she had 1 presyncopal event since her last visit in March. She says she had COVID and had an episode of diaphoresis, unsteadiness, mild nausea. She has not had any full syncope or falls. Her prior episodes had similar symptoms, no clear triggers. She has no chest discomfort, shortness of breath, concerning heart palpitations, leg edema. She has good activity tolerance. [facility] Medical History Breast cancer Family History Father No problems noted. Mother No problems noted. Social History Alcohol intake: current Alcohol intake frequency: holidays/special occasions only Patient Tobacco Use Status: Never used Tobacco Review of Systems Const All systems reviewed & are unremarkable except as noted in HPI and below ENT Reports dizziness Card Denies chest pain, Denies chest pain at rest, Denies chest pain with activity, Denies rapid heart rate, Denies pedal edema, Denies edema, Denies leg edema, Denies lightheadedness, Denies palpitations, Denies dyspnea, Denies dyspnea on exertion and Denies orthopnea Resp Denies cough, Denies dyspnea and Denies dyspnea on exertion GI Denies hematochezia and Denies change in stool character Musc Denies abnormal gait, Denies limited range of motion, Denies muscle cramps, Denies muscle weakness, Denies numbness, Denies radiating pain into limb, Denies stiffness and Denies tingling Neuro Denies abnormal gait, Reports dizziness, Denies numbness and Denies tingling Endo Denies palpitations Physical Exam Vital Signs: Last Vital Signs Pulse 81 06/23/25 14:20 BP 110/62 06/23/25 14:20 BMI result Body Mass Index 31.1 Const General: cooperative, healthy appearing, comfortable and no acute distress Orientation/consciousness: patient oriented x3 Neck Neck: Yes normal visual inspection and Yes no JVD Carotids: normal carotid upstroke Resp Effort & Inspection: normal respiratory effort Auscultation: clear to auscultation bilaterally, no rales, no rhonchi and no wheezes Cardio Rate: regular rate Rhythm: regular rhythm Heart sounds: S1 normal heart sound present, S2 normal heart sound present, no gallops, no murmurs and no rubs Neuro General: patient oriented x3 Extrem General: Yes normal to inspection, No no pedal edema and No calf tenderness Psych Appearance: grossly normal Mental Status: mental status grossly normal Speech and movement: Normal speech and movement present Assessment & Plan Assessment & Plan (1) Pre-syncope: Code(s): R55 - Syncope and collapse Category: Medical Plan: Presyncopal type events that sound vasovagal in nature. Cardiac testing includes EKG 12/29/2024 showing sinus rhythm, rate 70, normal OH, QRS and QTC intervals. Cardiac event monitor 05/10/2025 worn for 26 days showing sinus rhythm with heart rate range 40 to 136, average 75 beats per minute, no conduction abnormalities, symptoms correlated with sinus rhythm and sinus tachycardia. Echocardiogram 05/10/2025 showed EF 60-65%, impaired relaxation, no valve abnormalities. A tilt-table test done 06/14/2025 shows orthostatic hypotension. She tells me that during the tilt-table test she was not having any symptoms until they gave her nitroglycerin sublingual. Spent time discussing the different types of presyncope/syncope. It seems more likely this is vasovagal. She will work on identifying triggers. Discuss the need for good hydration, she can add salt to her diet. Wear compression stockings if having lightheadedness with standing. Continue physical activity as tolerated, exercise as able. Cardiology follow-up 6 months to reassess, sooner if needed. Plan Time spent on chart review, documentation, interview and assessment Coding Level of Care Code Est Pt Level 3 (39137) Complex EM visit Add On G2211 Diagnoses Pre-syncope R55 Time Spent (min) 24
--- OUTSIDE RECORDS SUMMARY | 2025-06-23 15:47 | XMS_ITS | Patient Health Record ---
Author Organization Roger Guevara MD Address [address] [place], [place] [phone] Care Team Providers Care Deposition Operator Name Role Phone Roger Guevara Primary Care Provider Allergies No Known Allergies Results Component Value Reference Range Notes Electrocardiogram (EKG) Reviewed date:03/21/2025 01:04:36 PM Interpretation: Performing Lab: Notes/Report: Complete Blood Count Auto Di ff Reviewed date:03/24/2025 08:32:08 PM Interpretation: Performing Lab:[facility], [address] [place] [phone] Notes/Report: White Blood Count 8.6 4.8-10.8 X10*3/uL [...] NRBC Abs Auto 0.000 0.0-0.012 X10*3/uL Comprehensive [place]. Panel Fa Reviewed date:03/24/2025 08:32:34 PM Interpretation: Performing Lab:[facility], [address] [place] [phone] Notes/Report: Sodium 142 135-145 mmol/L Potassium 4.2 [...] T4 Reviewed date:03/29/2025 12:38:42 PM Interpretation: Performing Lab:[facility], [address] [place] [phone] Notes/Report: TSH reflex Free T4 0.37 0.32-4.0 uIU/mL Hold Gold Reviewed date:03/29/2025 12:38:50 PM Interpretation: Performing Lab:[facility], [address] [place] [phone] Notes/Report: Robby Gold See Note Specimen held untested for 24 [...] stop date) Never Smoker NA - NA Tobacco Control (Standard) Question Answer Notes Tobacco use: Nonsmoker Problems Problem Type SNOMED Code ICD Code Onset Dates Problem Status W/U Status Risk Notes Problem Hypothyroid (28938648) Hypothyroid (E03.9) Active confirmed Problem Personal history of primary malignant neoplasm of breast (025822764) History of breast cancer (Z85.3) Active confirmed Problem Cardiovascular disease (67710106) Cardiovascular disease (I25.10) Active confirmed Vital Signs Blood pressure diastolic 70 mm Hg 03/28/2025 Height 67 in 03/28/2025 Blood pressure systolic 122 mm Hg 03/28/2025 Weight 202 lbs 03/28/2025 BMI 31.63 kg/m2 03/28/2025 Encounters Encounter Location Date Provider Diagnosis Roger Guevara MD [address] [place] [address] [address] [place], [place] [id number] 03/22/2025 Roger Guevara Cardiovascular disea se I25.10 Roger Guevara MD [address] [place] [id number] 01/07/2025 Roger Guevara History of breast cancer Z85.3 and Vasovagal attack R55 Roger Guevara MD [address] [place] [id number] 03/21/2025 Roger Guevara Vasovagal attack R55 and Cardiovascular disease I25.10 Roger Guevara MD [address] [place] [id number] 03/28/2025 Roger Guevara Hypothyroid E03.9 an d Weakness generalized R53.1 Rgoer Guevara MD [address] [place] [id number] 12/31/2024 Roger Guevara MD [address] [place] [id number] 03/29/2025 Roger Guevara Syncope R55 and Neck [...] (ICD-10 - R55) Order faxed to Johnny Segovia 03/21/2025 Cardiovascular disease (ICD-10 - I25.10) 03/29/2025 Neck pain (ICD-10 - M54.2) Order faxed to Johnny 03/21/2025 Other referral to cardiology/ had hiked 12 miles with no similar problems Plan Of Treatment Pending Test Test Name Order Date Complete Blood Count Auto Diff 5 Comprehensive [place]. Panel Fast TSH reflex Free T4 03/28/2025 MR head/brain wo con 03/29/2025 MR cervical spine wo con 03/29/2025 Next Appt Details Provider Name:Roger torres, 07/08/2025 08:00:00 AM, [address] [place] [address], [address], [phone], Provider Name:Roger torres, 07/15/2025 09:30:00 AM, [address] [place] [address], [address], [place], [place], [phone], Insurance Providers Payer Name Payer Address Payer Phone Subscriber Number Group Number Insured Name Patient Relationship to Insured Coverage Start Date Coverage End Date [address] [place] [phone] [id number] MADONNA DOOLEY Self - patient is the insured
--- OUTSIDE RECORDS SUMMARY | 2025-06-23 15:48 | XMS_ITS | Clinical Summary ---
Author Organization [facility] Address [address] [facility] [address] [place] [address] Phone Care Team Providers Care Slubber Machine Operator Name Role Phone Tr Escobar MD Primary [...] 02/02/2008 OSTEOPOROSIS SCREENING INITI AL (ONE-TIME) 2023 INFLUENZA VACCINE (#1) 2025 , 06/26/2019, 06/21/2015 COVID-19 VACCINE (3 - 2024-2 6 season) 2025 11/12/2020, 10/22/2020 RSV VACCINE (1 - 1-dose [...] PPO PPO PPO PPO PPO PPO PPO PPO PPO Care Teams Slubber Machine Operator Relationship Specialty Start Date End Date Tr Escobar MD [address] [place] [phone] PCP - General 11/21/15 Additional Source Comments The information contained in this document represents components of the legal health record. It is not the complete legal health record.[facility]
--- OUTSIDE RECORDS SUMMARY | 2025-06-23 15:48 | XMS_ITS | Clinical Summary ---
Author Organization [facility] Address [address] [place] [address] Phone Care Team Providers Care Sales Representative Printing Name Role Phone Roger Guevara MD Primary Care Provider [phone] Encounters Date Type Department Care Team Description 06/14/2025 12:44 PM EDT - 06/14/2025 11:59 PM EDT Hospital Encounter [facility] Xray [address] [place] [address] Syncope and collapse Discharge Disposition: Home or Self Care from Last 3 Months Social History Tobacco Use Types Packs/Day Years Used Date Smoking Tobacco: Never Assessed Comments Unknown Sex and Gender Information Value Date Recorded Sex Assigned at Not on file Legal Sex Female 11:18 AM EST Gender Identity Not on file Sexual Orientation Not on file Plan of Treatment Health Maintenance Due Date Last Done Comments Breast Cancer Screening 1960 Colorectal Cancer Screening: Colonoscopy 1960 DTaP,Tdap,and Td Vaccines (1 - Tdap) 1977 Pneumococcal Vaccine: 50+ Years (1 of 2 - PCV) 1977 Zoster Vaccines (1 of 2) 1977 Depression Screening 09/22/2024 Falls Risk Assessment 04/07/2025 Hepatitis C Screening 04/07/2025 Osteoporosis Screening (Bone Density Screening) 04/07/2025 Social Influencers of Health Screening 04/07/2025 COVID-19 Vaccine (8 - Pfizer risk season) 2025 06/26/2024, 07/09/2023, 07/23/2022, Additional history exists Influenza Vaccine (#1) 2025 , 07/04/2023, 06/29/2022, Additional history exists RSV Immunization Adult Patients (1 - 1-dose 75+ series) 2033 HIB [...] to complete this topic RSV Immunization Patients Under 20 months Aged Out No longer eligible based on patient's age to complete this topic Varicella Vaccines Aged Out No longer eligible based on patient's age to complete this topic Procedures Procedure Name Priority Date/Time Associated Diagnosis Comments TILT TABLE Routine 06/14/2025 12:57 PM EDT Syncope and collapse from Last 3 Months Results * Tilt table (06/14/2025 12:57 PM EDT) Anatomical Region Laterality Modality Radiographic Janessa ging Narrative 06/14/2025 1:44 PM EDT Symptoms today are similar but not identical to at home symptoms. Orthostatic hypotension related to SL Ntg. CSM negative Tilt Table The patient was brought to lab in fasting state. Patient lied supine for 5 minutes for equilibrium. Baseline ECG showed normal sinus rhythm. Baseline supine minimum BP: 121/62 mmHg Baseline supine minimum HR: 71 bpm Patient tilted to 70 degrees. Tilt maintained for 20 minutes. Minimum BP during tilt: 110/68 mmHg Maximum BP during tilt: 128/76 mmHg Minimum heart rate during tilt: 134/75 bpm Maximum heart rate during tilt: 103 bpm Rhythm during tilt: normal sinus rhythm Patient experienced a physiologic HR increase with tilt. No symptoms reported. Nitroglycerin was given during the test. Tilt maintained under nitroglycerin for 5 minutes. Minimum BP under nitroglycerin: 65/32 Maximum BP under nitroglycerin: 145/85 Minimum HR under nitroglycerin: 91 Maximum HR under nitroglycerin: 115 Rhythm after nitroglycerin administration was sinus tachycardia. There was a clear orthostatic response noted. Patient experienced a physiologic HR increase with nitroglycerin. Symptoms seen after the nitroglycerin dose include: light headedness and nauseous. Premonitory symptoms were reproduced. Syncope/presyncope symptoms were not reproduced. A transient increase in HR was seen. This was followed by hypotension then bradycardia. Carotid message was performed. Conclusion: Abnormal tilt test with findings consistant with orthostatic hypotension. us Amandeep Cárdenas MD [facility] CEDURES Final Result from Last 3 Months Insurance MEDICARE [facility] [address] [place] [address] Care Teams Sales Representative Printing Relationship Specialty Start Date End Date Roger Guevara MD [address] [place] [address] Drive [address] [place] [address] PCP - General Internal Medicine 06/14/25
--- OUTSIDE RECORDS SUMMARY | 2025-06-23 15:49 | XMS_ITS | Patient Health Record ---
Author Organization [facility] Address [address] [place] [address] Care Team Providers Care Tire Sorter Name Role Phone Tr Escobar MD Primary Care Provider Saniya Washington Unavailable [phone] Allergies No Known Allergies Reason For Referral [...] W/U Status Risk Notes Problem Plantar wart (03129410) Plantar wart (B07.0) Active confirmed Problem Acquired hallux valgus (03344953) Hallux valgus (acquired), right foot (M20.11) Active confirmed Problem Gouty arthritis of right foot (3777148922066 107) Gouty arthritis of right foot (M10.9) Active confirmed Plan Of Treatment Pending Test Test Name Order Date [id number] Destruction, 1-14 11/14/2014 Insurance Providers Payer Name Payer Address Payer Phone Subscriber Number Group Number Insured Name Patient Relationship to Insured Coverage Start Date Coverage End Date [facility] [address] [place] [address] [phone] [id number] Jane Monte Self - patient is the insured Medical (General) History Medical History History ICD Code Thyroid disorder Chicken pox Measles Surgical History Surgery Date(Month/Year)
--- OUTSIDE RECORDS SUMMARY | 2025-06-23 15:49 | XMS_ITS | Patient Health Record ---
Author Organization [facility] Address [address] [place] [address] Care Team Providers Care Booster Assembler Name Role Phone Luz (RETIRED) Tr NAVA Primary Care Provide r Unavailable Oren Goss Unavailable [phone] Reason For Referral No Information Medications Medication SIG (Take, Route, Frequency, Duration) Notes Start Date End Date Status Levothyroxine Sodium 100 MCG Oral for 90 Active Immunizations Vaccine Route Administration Date Status Comme nts Flu vaccine no Preserv 3 and > Unknown 04/09/2016 Admin istered Problems Problem Type SNOMED Code ICD Code Onset Dates Problem Status W/U Status Risk Notes Problem [id number] Encounter for screening for malignant neoplasm of colon (Z12.11) Active confirmed Problem Screening for malignant neoplasm of rectum (673921379) Encounter for screening for malignant neoplasm of rectum (Z12.12) Active confirmed Problem [id number] Preprocedural examination (Z01.818) Active confirmed Plan Of Treatment Future Test Test Name Order Date COLONOSCOPY 04/09/2016 Insurance Providers Payer Name Payer Address Payer Phone Subscriber Number Group Number Insured Name Patient Relationship to Insured Coverage Start Date Coverage End Date [facility] [address] [facility] [place] [phone] [id number] MADONNA ALVARADO Self - patient is the insured Medical (General) History Medical History History ICD Code Denies [place],DM,CVA,Lung disease,renal dise ase Surgical History Surgery Date(Month/Year) 1 1986
== END 2025-06-23 15:04 | disposition home or self-care (01) ==
LOC: HO.HCS 14:12
PROVIDERS: Visit Provider Nurse Practitioner Family
DX: R55 Syncope and collapse (principal)
CPT/HCPCS: 99213; G2211

== ENCOUNTER 2025-07-01 12:17 | Outpatient (REF) | payer OTHER, SELFPAY ==
[2025-07-01 12:26] LABS: MANUAL DIFF FLAG NO
--- OUTSIDE RECORDS SUMMARY | 2025-07-01 13:01 | XMS_ITS | Continuity of Care Document ---
Author Organization [facility] [address] [place] [address] Phone [phone] Care Team Providers Care Electrical Plumbing Supervisor Name Role Phone Tr Escobar M.D. Care Team Information Receiv er [phone] Problems Active Problems Provider Date Stephanie thyroiditis [...] SIG Qnty Indications Ordering Provider Date Levothyroxine [id number] Tablets Take 1 Tablet By Mouth Every Day 90tabs Kwesi Wong M.D. 05/25/2023 [id number] Tablets Take 1 Tablet By Mouth Daily [...] 0.82-1.77 TSH With Reflex To FT4 09/17/2023 [facility] TSH With Reflex To FT4 1.98 uIU/mL (0.4-4.2) TSH With Reflex To FT4 05/27/2023 [facility] TSH With Reflex To FT4 <pending> TSH With Reflex To FT4 05/20/2023 [facility] TSH With Reflex To FT4 0.08 uIU/mL Low (0.4-4.2) Free T4 05/20/2023 [facility] Free T4 1.89 ng/dL High (0.70-1.80 ) Procedures Date Code Description Status 06/28/2024 NSHOWOFF No Show Office Visit Complet ed 03/27/2022 [id number] Collection Of Capillary Bloo d Specimen Completed [...]
[2025-07-01 13:12] LABS: Appearance Urine Clear; Glucose Urine UA Negative (Negative); PH 6.5 (5.0-9.0); Specific Gravity - Urine 1.015 (1.005-1.025); UMIC TRIGGER UACC YES
[2025-07-01 13:13] LABS: Hematocrit 46.4 % (37.0-47.0); Hemoglobin 14.9 g/dl (12.0-16.0); Imm Gran Abs Auto 0.02 X10*3/uL (0.00-0.03); Imm Gran Pct Auto 0.2 % (0.0-0.4); Lymphocytes Absolute Auto 3.2 X10*3/uL (1.2-4.9); Mean Corpuscular HGB Conc 32.1 g/dl (31.0-35.0); Mean Corpuscular Hemoglobin 29.3 pg (27.0-33.0); Mean Corpuscular Volume 91.3 fL (80.0-98.0); NRBC Abs Auto 0.000 X10*3/uL (0.0-0.012); NRBC Pct Auto 0.0 /100WBC (0.0-0.2); Platelet Count 316 X10*3/uL (160-400); Red Blood Count 5.08 X10*6/uL (4.20-5.50); White Blood Count 8.5 X10*3/uL (4.8-10.8)
[2025-07-01 17:21] LABS: Alanine Aminotransferase 18 U/L (0-31); Albumin Level 4.3 g/dL (3.5-5.0); Alkaline Phosphatase 110 U/L (39-117); Anion Gap 14 (12-20); Aspartate Amino Transferase 25 U/L (5-31); Blood Urea Nitrogen 11 mg/dL (9-16); Calcium 9.7 mg/dL (8.4-10.2); Carbon Dioxide 24 mmol/L (22-29); Chloride 109 mmol/L (96-108); Cholesterol 196 mg/dL (<200); Estimated Glomerular Filt Rate 59; HDL Cholesterol 46 mg/dL (>40); Potassium 4.3 mmol/L (3.3-5.1); Sodium 143 mmol/L (135-145); Total Protein 7.1 g/dL (6.5-8.0); Triglycerides 116 mg/dL (<150)
[2025-07-01 17:25] LABS: Thyroid Stimulating Hormone 0.75 uIU/mL (0.32-4.0)
== END 2025-07-01 12:18 | disposition home or self-care (01) ==
LOC: HO.LNP 12:17
PROVIDERS: Visit Provider Internal Medicine
DX: Z00.00 Encounter for general adult medical examination without abnormal findings (principal); E03.9 Hypothyroidism, unspecified
CPT/HCPCS: 80053; 80061; 81001; 84443; 85025

== ENCOUNTER 2025-08-22 14:48 | Outpatient (REF) | payer OTHER, SELFPAY ==
--- NOTE | 2025-08-22 15:00 | EEG_ITS ---
History: Patient reports episode happening in December, February and May of sweaty and eyes jumping lasting for hours. Patient reports episodes have been increasing May. Medication: no list available Technical Description Photic Stimulation: completed Hyperventilation: omitted Behavioral State: pleasant State of Consciousness: awake and sleep Skull Defect: none Sedation: none Handedness: right Duration: 33 min 23 sec Limo Driver Comments: Last Meal: Time / date of last symptom: Description: This is a 16 channel EEG with an EKG lead. Patient is reported awake and sleep during the tracing. Background EEG rhythm is about 9-10 hertz 5-100 microvolt posteriorly lower amplitude fast anteriorly. This rhythm is responsive to eye opening closure. Photic stimulation does not produce any significant driving. Hyperventilation is not performed. Cardiac lead does not reveal any significant abnormality. No sharp wave spikes or paroxysmal tendency noted. Impression: No significant abnormality noted on this EEG. ZACD
--- OUTSIDE RECORDS SUMMARY | 2025-08-22 18:06 | XMS_ITS | Clinical Summary ---
Author Organization [facility] Address [address] [facility] [address] [place] [address] Phone Care Team Providers Care Rubber Worker Name Role Phone Tr Escobar MD Primary [...] PPO PPO PPO PPO PPO Care Teams Rubber Worker Relationship Specialty Start Date End Date Tr Escobar MD [address] [place] [address] PCP - General 11/21/15 Additional Source Comments The information contained in this document represents components of the legal health record. It is not the complete legal health record.[facility]
--- OUTSIDE RECORDS SUMMARY | 2025-08-22 18:06 | XMS_ITS | Clinical Summary ---
Author Organization [facility] Address [address] [place] [address] Phone Care Team Providers Care Accounts Receivable Executive Name Role Phone Roger Guevara MD Primary Care Provider [phone] Encounters Date Type Department Care Team Description 06/14/2025 12:44 PM EDT - 06/14/2025 11:59 PM EDT Hospital Encounter Xray [address] [place] [address] Syncope and collapse Discharge Disposition: [...] Influencers of Health Screening 04/07/2025 COVID-19 Vaccine ( season) 2025 06/26/2024, 07/09/2023, 07/23/2022, Additional history [...] Result from Last 3 Months Insurance MEDICARE [facility] [address] [place] [address] Care Teams Accounts Receivable Executive Relationship Specialty Start Date End Date Roger Guevara MD [address] [place] [address] Drive [address] [place] [address] PCP - General Internal Medicine 06/14/25
== END 2025-08-22 14:49 | disposition home or self-care (01) ==
LOC: HO.NEURO 14:48
PROVIDERS: PCP Internal Medicine; Visit Provider Internal Medicine
DX: R55 Syncope and collapse (principal)
CPT/HCPCS: 95816

== ENCOUNTER → 2025-08-22 15:00 | Outpatient (BNV) | payer OTHER, SELFPAY | PROVIDERS: PCP Internal Medicine; Visit Provider Psychiatry & Neurology Neurology | DX: R55 Syncope and collapse (principal) | CPT/HCPCS: 95819 ==